=== PATIENT | female | born 1970 | race Caucasian/White ===

== ENCOUNTER 2021-08-22 10:09 | Outpatient (RCR) | payer OTHER, SELFPAY ==
--- OUTSIDE RECORDS SUMMARY | 2021-08-10 14:49 | XMS_ITS | Continuity of Care Document ---
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 Home Phone: Payer Policy Id Coverage Id Subscriber's Subscriber Effective Expi ration Name Id Date Date [place] [id number] [facility] Encounters Encounter Location(s) Arrival/Admit Date Discharge/Depart Date Provider(s) Registered [place] July 25, 2021 Ahmet Mcnally [facility] [id number] antonio Phan MD
[2021-08-22 10:28] VITALS: BP 134/75; PULSE 74; RESP 16; TEMP 36.4; O2SAT 98
[2021-08-22] MEDS: GOSERELIN ACETATE 3.6 MG IMPLANT SUBCUT (10:31)
== END 2021-08-24 23:59 | disposition home or self-care (01) ==
LOC: CCIC 10:09
PROVIDERS: Visit Provider Nurse Practitioner Family
DX: C78.00 Secondary malignant neoplasm of unspecified lung (principal)
CPT/HCPCS: 96401; J9202

== ENCOUNTER 2021-09-19 15:26 | Outpatient (RCR) | payer OTHER, SELFPAY ==
--- NOTE | 2021-09-15 16:23 | ONC.NURNOTE ---
Authorization from 05/26/2021 1200 per Amisha Morfin. Received request for prior auth for Gosrelin ([id number]). Per [facility] website and Khmer F at [facility], prior authorization is not required for this plan. Call ref#[id number].
[2021-09-19 15:40] VITALS: BP 126/72; PULSE 83; RESP 16; TEMP 36.7; O2SAT 98
[2021-09-19] MEDS: GOSERELIN ACETATE 3.6 MG IMPLANT SUBCUT (15:43)
== END 2021-09-24 23:59 | disposition home or self-care (01) ==
LOC: CCIC 15:26
PROVIDERS: Visit Provider Nurse Practitioner Family
DX: C55 Malignant neoplasm of uterus, part unspecified (principal)
CPT/HCPCS: 96372; 96401; J9202

== ENCOUNTER 2021-10-20 09:38 | Outpatient (RCR) | payer OTHER, SELFPAY ==
[2021-10-20 09:50] VITALS: BP 126/81; PULSE 78; RESP 16; TEMP 37.1; O2SAT 98
[2021-10-20] MEDS: GOSERELIN ACETATE 3.6 MG IMPLANT SUBCUT (10:21)
--- NOTE | 2021-10-20 10:53 | ONC.NURNOTE ---
Addendum entered by Cora Collins RN 11/15/21 15:05: Patient called and left message stating that she is enrolling in a study with [facility], so all further appointments here need to be cancelled. Original Note: Patient notes that she was told that she may need to start another chemotherapy. She is waiting to hear back from [place] to be enrolled into the clinical trial. At this time her primary medical oncologist, Dr. Almazan wants her to continue with injections. She will call when these are to be discontinued and she is being seen in [place].
== END 2022-04-18 23:59 | disposition home or self-care (01) ==
LOC: CCIC 09:38
PROVIDERS: Visit Provider Nurse Practitioner Family
DX: C55 Malignant neoplasm of uterus, part unspecified (principal); C78.00 Secondary malignant neoplasm of unspecified lung
CPT/HCPCS: 96401; J9202

== ENCOUNTER 2021-12-27 09:34 | Outpatient (CLI) | payer OTHER, SELFPAY ==
--- NOTE | 2021-12-27 10:00 | CRLHL7_ITS ---
For Patients: As a result of the 21st Century Cures Act, medical imaging exams and procedure reports are released immediately into your electronic medical record. You may view this report before your referring provider. If you have questions, please contact your health care provider. Indication: leiomyosarcoma- assess response to treatment Technique: Postcontrast CT chest, abdomen and pelvis. 95 cc Isovue 370 intravenous contrast. Please note that all CT scans at this facility use dose modulation, iterative reconstruction, and/or weight-based dosing when appropriate to reduce radiation dose to as low as reasonably achievable. Comparison: None Findings: In the chest, there are innumerable smoothly marginated oval/ovoid soft tissue nodules throughout the lungs bilaterally measuring up to 3 cm. Right-sided Port-A-Cath is present. Thyroid normal. Subcentimeter mediastinal and bilateral hilar lymph nodes are present. Normal axillary lymph nodes. Breast tissue unremarkable. Ill-defined density in the lingula adjacent to the hilum measuring 2.8 cm, series 4, image 40. The adjacent airways appear partially occluded. Dependent scarring within the right lower lobe. Postoperative changes to the right hemithorax/right ribcage. Sclerotic lesion within T7 measuring 1.4 cm. Smaller sclerotic focus within T5 and T11. Faint sclerotic density T12 with mild chronic appearing wedging of the superior endplate. Faint sclerotic focus within the right 5th rib. In the abdomen/pelvis, there is a benign intraosseous hemangioma within the L2 vertebral body. Proximal femurs are intact. Intact sacrum. Normal renal collecting systems and ureters. Normal renal parenchymal enhancement bilaterally. There is no retroperitoneal or mesenteric adenopathy. No intrahepatic mass. The gallbladder is normal. No calcified gallstones. No biliary obstruction. Normal pancreas. Normal spleen. The adrenal glands are normal. Mild vascular calcifications. No aneurysm. Normal bladder. Uterus appears absent. No adnexal mass. No bowel obstruction or free air. The appendix is normal. Right para midline supraumbilical hernia is present containing fat measuring 8.4 cm. A smaller right paramidline hernia is present measuring 1.5 cm, series 2, image 188, containing a small knuckle of non inflamed small bowel. Impression: Innumerable metastatic well-circumscribed masses throughout the lungs measuring up to 3 cm consistent with metastatic disease. Metastatic sclerotic foci within T7, T5, T11, T12 and the right 5th rib compatible with metastatic disease. Mild chronic wedging of the T12 superior endplate. Ill-defined 2.8 cm masslike density within the lingula adjacent to the hilum with associated obstruction of the airway, concerning for additional lesion which could be further evaluated with bronchoscopy as indicated. Right paramidline abdominal wall hernias. The smaller hernia measures 1.5 cm and contains a small knuckle of non inflamed small bowel. Please note that all CT scans at this facility use dose modulation, iterative reconstruction, and/or weight-based dosing when appropriate to reduce radiation dose to as low as reasonably achievable. Dictated by Margarito Ward MD @ 12/27/2021 12:16:43 PM (Electronically Signed)
== END 2021-12-27 09:35 | disposition home or self-care (01) ==
PROVIDERS: Visit Provider Internal Medicine
DX: C55 Malignant neoplasm of uterus, part unspecified (principal); C78.00 Secondary malignant neoplasm of unspecified lung; C79.51 Secondary malignant neoplasm of bone; K43.9 Ventral hernia without obstruction or gangrene
CPT/HCPCS: 71260; 74177; Q9967

== ENCOUNTER 2022-02-07 10:49 | Outpatient (CLI) | payer OTHER, SELFPAY ==
--- NOTE | 2022-02-07 11:00 | CRLHL7_ITS ---
For Patients: As a result of the Century Cures Act, medical imaging exams and procedure reports are released immediately into your electronic medical record. You may view this report before your referring provider. If you have questions, please contact your health care provider. Indication: LEIOMYOSARCOMA, METS TO LUNG Technique: Postcontrast CT chest, abdomen and pelvis. 95 cc Isovue 370 intravenous contrast. Please note that all CT scans at this facility use dose modulation, iterative reconstruction, and/or weight-based dosing when appropriate to reduce radiation dose to as low as reasonably achievable. Comparison: 12/27/2021 Findings: In the chest, similar size and number multiple circumscribed masses throughout the lungs measuring up to approximately 3 cm. No pneumothorax. No acute infiltrate. Chronic ill-defined densities adjacent to the lyla within the lingular region. Scarring at the right lower lobe. No pleural effusion. No fracture. Similar appearance of the osseous structures with prominent sclerotic focus within T7. Ribcage is similar. In the abdomen/pelvis, there is no suspicious intrahepatic mass. No calcified gallstones. No biliary obstruction. The pancreas is within normal limits. Normal spleen. Normal adrenal glands. Kidneys normal. Normal ureters. No retroperitoneal or mesenteric adenopathy. Upper abdominal wall hernia defect containing fat is similar. Smaller hernia just inferior is also similar with a small amount of bowel involvement. No bowel obstruction. No inflammatory changes. Stable appearance of the ovaries with hyperdense structures associated with the left ovary. Bladder normal. No pelvic or inguinal adenopathy. Stable lytic area involving the left medial pubic bone. Stable mild compression of T12. Stable sclerotic focus within T11. Impression : Overall stable appearance of the chest, abdomen and pelvis with innumerable metastatic masses throughout the lungs, unchanged in number and size. Similar appearance of the osseous metastatic disease without acute compression fracture. Stable appearance of the anterior abdominal wall. Please note that all CT scans at this facility use dose modulation, iterative reconstruction, and/or weight-based dosing when appropriate to reduce radiation dose to as low as reasonably achievable. Dictated by Margarito Ward MD @ 02/07/2022 1:53:49 PM (Electronically Signed)
== END 2022-02-07 10:50 | disposition home or self-care (01) ==
LOC: CT 10:50
PROVIDERS: Visit Provider Internal Medicine
DX: C49.9 Malignant neoplasm of connective and soft tissue, unspecified (principal); R91.8 Other nonspecific abnormal finding of lung field
CPT/HCPCS: 71260; 74177; Q9967

== ENCOUNTER 2022-02-19 09:50 | Outpatient (CLI) | payer OTHER, SELFPAY ==
[2022-02-19 10:41] LABS: Eosinophils Percent Auto 3.5 % (0.0-7.0); Hematocrit 40.2 % (33.0-51.0); Immature Granulocytes Pct Auto 0.3 %; Lymphocytes Percent Auto 31.7 % (20-44); Mean Corpuscular HGB Conc 35 gm/dL (32-36); Mean Corpuscular Hemoglobin 32 pg (26-34); Mean Corpuscular Volume 93 fL (80-100); Monocytes Percent Auto 15.3 % (0.0-11.0); Neutrophils Percent Auto 48.2 % (42.0-72.0); Platelet Count* 328 K/uL (140-440); RDW Coefficient of Variation % 12.3 % (11.5-15.5); Red Blood Count 4.34 m/uL (4.00-5.20); White Blood Count* 2.87 K/uL (4.50-11.00)
[2022-02-19 10:48] LABS: Slide Review Reflex No
[2022-02-19 10:59] LABS: Albumin* 4.5 g/dL (3.3-5.0); Chloride* 111 mmol/L (96-114)
[2022-02-19 11:00] LABS: Potassium* 4.2 mmol/L (3.6-5.1); Sodium* 141 mmol/L (135-149)
[2022-02-19 11:02] LABS: Alkaline Phosphatase* 85 U/L (40-150); Aspartate Amino Transferase* 35 U/L (12-35); Bilirubin Total* 0.7 mg/dL (0.1-1.5); Blood Urea Nitrogen* 16 mg/dL (7-30); Carbon Dioxide* 27 mmol/L (20-32); Creatine Kinase* 44 U/L (41-117); Creatinine* 0.5 mg/dL (0.5-1.5); Estimated Glomerular Filt Rate 113 ml/min; Total Protein* 7.4 g/dL (6.0-8.3)
[2022-02-19 11:03] LABS: Alanine Aminotransferase* 36 U/L (4-35); Calcium* 9.3 mg/dL (8.4-10.6); Glucose* 107 mg/dL (60-115); Phosphorus* 3.6 mg/dL (2.5-4.5)
== END 2022-02-19 09:51 | disposition home or self-care (01) ==
PROVIDERS: Visit Provider Internal Medicine
DX: C49.9 Malignant neoplasm of connective and soft tissue, unspecified (principal)
CPT/HCPCS: 36415; 80053; 82550; 84100; 85025

== ENCOUNTER 2022-03-28 07:54 | Outpatient (CLI) | payer OTHER, SELFPAY ==
--- NOTE | 2022-03-28 08:00 | CRLHL7_ITS ---
For Patients: As a result of the Century Cures Act, medical imaging exams and procedure reports are released immediately into your electronic medical record. You may view this report before your referring provider. If you have questions, please contact your health care provider. Indication: Leiomyosarcoma Technique: Postcontrast CT chest, abdomen and pelvis. 98 cc Isovue 370 intravenous contrast. Please note that all CT scans at this facility use dose modulation, iterative reconstruction, and/or weight-based dosing when appropriate to reduce radiation dose to as low as reasonably achievable. Comparison: 02/07/2022, 12/27/2021 Findings: In the chest, innumerable bilateral pulmonary nodules/masses are similar in size and number compared to the prior exam. The largest nodule measures approximately 3.3 cm. Mildly prominent upper mediastinal lymph nodes are similar. No pleural effusion. No infiltrate. No edema or pneumothorax. No change to the osseous structures unchanged sclerotic focus within T7 and T11 with chronic compression of T12. In the abdomen, there is no suspicious intrahepatic mass. The adrenal glands are normal. Normal kidneys. Spleen unremarkable. Normal pancreas. Atherosclerotic disease. Gallbladder normal. No retroperitoneal or mesenteric adenopathy. Stable supraumbilical midline abdominal wall hernia containing fat measuring up to 8 cm. In the pelvis, there is no pelvic or inguinal adenopathy. No bladder stone. A small amount of air is present within the bladder which is likely incidental. Mild sigmoid diverticulosis. No diverticulitis. No mechanical bowel obstruction. Appendix is normal. Stable soft tissue nodule within the right-sided subcutaneous fat measuring 1.7 cm at the level of the right acetabulum. Impression: No significant interval change in the innumerable bilateral pulmonary nodules/masses. Stable appearance of the osseous metastatic disease. Stable soft tissue nodule along the right lateral flank in the subcutaneous fat. Stable anterior abdominal wall hernia containing fat. No adenopathy in the abdomen or pelvis. No intrahepatic mass. Please note that all CT scans at this facility use dose modulation, iterative reconstruction, and/or weight-based dosing when appropriate to reduce radiation dose to as low as reasonably achievable. Dictated by Margarito Ward MD @ 03/29/2022 3:40:32 PM (Electronically Signed)
== END 2022-03-28 07:55 | disposition home or self-care (01) ==
PROVIDERS: Visit Provider Internal Medicine
DX: C49.9 Malignant neoplasm of connective and soft tissue, unspecified (principal); K43.9 Ventral hernia without obstruction or gangrene
CPT/HCPCS: 71260; 74177; Q9967

== ENCOUNTER 2022-04-14 20:55 | Emergency (ER) | payer OTHER, SELFPAY ==
[2022-04-14 21:06] VITALS: BP 138/84; PULSE 128; RESP 22; TEMP 38.3; O2SAT 97; BMI 33.2
--- NOTE | 2022-04-14 21:24 | ED_ITS ---
HPI - General Adult General Chief complaint: Fever Stated complaint: cancer pt - high fever Time Seen by Provider: 04/14/22 21:22 Source: patient and family Mode of arrival: ambulatory Limitations: no limitations History of Present Illness HPI narrative: 52-year-old female who comes in today with fever. 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 She has been taking ibuprofen fairly regularly but started feeling poorly today, did not take ibuprofen and developed fever. She noticed some nasal congestion a little bit of cough, daughter has COVID. She denies chest pain, shortness of breath, nausea, vomiting, diarrhea. Says she generally feels like she has a cold. Related Data Home Medications Medication Instructions Recorded Confirmed amlodipine 5 mg tablet mg 08/22/21 calcium carbonate 200 mg calcium 1 tab PO DAILY 08/22/21 04/14/22 (500 mg)-vitamin D3 400 unit tablet cinnamon bark 500 mg capsule 500 mg PO DAILY 08/22/21 04/14/22 (Cinnamon) fluoxetine 40 mg capsule mg 08/22/21 hydrochlorothiazide 25 mg tablet mg 08/22/21 losartan 100 mg tablet mg 08/22/21 aspirin 81 mg tablet,delayed 81 mg PO DAILY 04/14/22 04/14/22 release (Adult Aspirin Regimen) citalopram 20 mg tablet mg 04/14/22 gabapentin 300 mg capsule mg 04/14/22 Previous Rx's Medication Instructions Recorded cefdinir 300 mg capsule 300 mg PO BID 7 days #14 caps 04/14/22 Allergies Allergy/AdvReac Type Severity Reaction Status Date / Time fluconazole Allergy Mild nasuea Verified 04/14/22 21:18 Review of Systems Status of ROS: Reports: 10 or more systems reviewed and unremarkable except as noted in History and below [facility] Medical History (Updated 04/14/22 @ 23:30 by Robin Cintron MD) DVT (deep venous thrombosis) History of radiation therapy History of radiation therapy Leiomyosarcoma of uterus Malignant neoplasm metastatic to lung Surgical History (Updated 08/17/21 @ 17:15 by Leonela Zavala APRN) Status post cryoablation Exam Narrative: Exam Narrative: General: Well-developed and well-nourished, no acute distress Head: Atraumatic and normocephalic Eyes: Pupils are equal reactive, extraocular motions intact, conjunctiva clear ENT: External nose and ears are normal, posterior pharynx without erythema or exudate Neck: No midline cervical tenderness, full spontaneous range of motion the neck, trachea midline, no adenopathy Heart: Tachycardic but regular Lungs: Clear to auscultation bilaterally without wheezes or crackles Abdomen: Soft, nontender, nondistended with active bowel sounds Musculoskeletal: No tenderness, deformity, or edema Neurologic: Awake, alert, and oriented x3, no gross focal neurologic deficits, cranial nerves intact as tested Psych: Mood and affect are appropriate Skin: No rashes Const: Vital Signs, click to edit/add: Vital Signs - 24 hr 04/14/22 21:06 04/14/22 22:53 Temperature 101 F H 97.8 F Pulse Rate [Bilate ral] 128 H Respiratory Rate 22 Blood Pressure [Ri ght Upper Arm] 138/84 Pulse Oximetry 97 Oxygen Delivery Me thod Room Air Course Course Hospital Course: Patient seen examined, prior records reviewed. Patient presents today with fever, care affected by patient on chemotherapy with leiomyosarcoma metastatic to lung and pelvis with current pelvic insufficiency fracture. Differential diagnosis includes but not limited to neutropenic fever, medication reaction, pneumonia, urinary tract infection, intra-abdominal infection, COVID, influenza, sepsis. Labs ordered along with chest x-ray. IV fluids and ibuprofen ordered. Will draw blood cultures and perform urinalysis to evaluate for other source of infection but given history of COVID exposure, upper respiratory symptoms, and fever this most likely will represent COVID infection Reevaluation(s) Reevaluation #1: Labs independently interpreted by me demonstrate normal lactate, urinalysis with few bacteria, no squamous cells. COVID positive which likely is the source of symptoms. Chest x-ray independently interpreted by me does not demonstrate any acute infiltrates. Remaining labs are pending. Time: 23:08 Reevaluation #2: Patient updated, she is feeling better even the when she arrived and she was minimally symptomatic at that time. Discussed diagnosis and plan. Given mild concerning findings on urinalysis and patient moved compromise status, she will be started on antibiotics for possible acute cystitis but COVID is likely the major contributing to her symptoms today. Patient will be discharged on Omnicef , Rocephin in the emergency department, and follow-up with primary care and oncology. Time: 23:28 Vital Signs Vital signs: Initial Vital Signs Temperature 101 F H 04/14/22 21:06 Temperature Source Temporal Artery Scan 04/14/22 21:06 Pulse Rate 128 H 04/14/22 21:06 Pulse Rhythm 04/14/22 21:06 Pulse Strength 3+ Normal 04/14/22 21:06 Respiratory Rate 22 04/14/22 21:06 Blood Pressure 138/84 04/14/22 21:06 Blood Pressure Mean 102 04/14/22 21:06 Pulse Oximetry 97 04/14/22 21:06 Oxygen Delivery Method 04/14/22 21:06 Vital Signs Temperature 101 F H 04/14/22 21:06 Pulse Rate 128 H 04/14/22 21:06 Respiratory Rate 22 04/14/22 21:06 Blood Pressure 138/84 04/14/22 21:06 Pulse Oximetry 97 04/14/22 21:06 Oxygen Delivery Method 04/14/22 21:06 Temperature 97.8 F 04/14/22 22:53 Pulse Rate 128 H 04/14/22 21:06 Respiratory Rate 04/14/22 21:06 Blood Pressure 138/84 04/14/22 21:06 Pulse Oximetry 97 04/14/22 21:06 Oxygen Delivery Method 04/14/22 21:06 Medical Decision Making Medical Records Medical records reviewed: Yes I reviewed the patient's medical records Lab Data Lab results reviewed: Yes I reviewed the patient's lab results Labs: Lab Results 04/14/22 04/14/22 04/14/22 Range/Units 22:00 22:00 22:25 WBC 5.22 (4.50-11.00) K/uL RBC 4.31 (4.00-5.20) m/uL Hgb 13.9 (12.0-16.0) gm/dL Hct 39.5 (33.0-51.0) % MCV 92 (80-100) fL MCH 32 (26-34) pg MCHC 35 (32-36) gm/dL RDW Coeff of Mandy 12.4 (11.5-15.5) % Plt Count 184 (140-440) K/uL Neut % (Auto) 66.7 (42.0-72.0) % Lymph % (Auto) 15.1 L (20-44) % Sandoval % (Auto) 16.1 H (0.0-11.0) % Eos % (Auto) 0.4 (0.0-7.0) % Baso % (Auto) 0.4 (0.0-3.0) % Neut # (Auto) 3.48 (1.7-7.0) K/uL Lymph # (Auto) 0.80 L (0.90-2.90) K/uL [place]oval # (Auto) 0.80 (0.00-0.90) K/UL Eos # (Auto) 0.02 (0.00-0.50) K/uL Baso # (Auto) 0.02 (0.00-0.30) K/uL Sodium (135-149) mmol/L Potassium (3.6-5.1) mmol/L Chloride (96-114) mmol/L Carbon Dioxide (20-32) mmol/L BUN (7-30) mg/dL Creatinine (0.5-1.5) mg/dL Estimated Creat Clear Estimated GFR ml/min Glucose (60-115) mg/dL Lactate (0.5-1.9) mmol/L Calcium (8.4-10.6) mg/dL Total Bilirubin (0.1-1.5) mg/dL Direct Bilirubin (0.0-0.5) mg/dL AST (12-35) U/L ALT (4-35) U/L Alkaline Phosphatase (40-150) U/L Total Protein (6.0-8.3) g/dL Albumin (3.3-5.0) g/dL Urine Color Yellow (Yellow) Urine Appearance Clear (Clear) Urine pH 5.5 (5.0-8.5) Ur Specific [place] >= 1.030 (1.000-1.030) Urine Protein 1+ A (Negative) Urine Glucose (UA) Negative (Negative) Urine Ketones Trace A (Negative) Urine Blood 2+ A (Negative) Urine Nitrite Negative (Negative) Urine Bilirubin Negative (Negative) Urine Urobilinogen 0.2 (0.2-1.0) Ur Leukocyte Esterase Negative (Negative) Urine RBC 2-5 A (0-2) Urine WBC 2-5 (0-5) Ur Squamous Epith Cells None (None-Few) Amorphous Sediment Few A (None) Urine Bacteria Few A (None) SARS-CoV-2 (PCR) POSITIVE SARS-CoV-2 A (Negative) Influenza Type A (PCR) Negative PCR FLU A (Negative) Influenza Type B (PCR) Negative PCR FLU B (Negative) 04/14/22 04/14/22 04/14/22 Range/Units 22:25 22:25 22:25 WBC (4.50-11.00) K/uL RBC (4.00-5.20) m/uL Hgb (12.0-16.0) gm/dL Hct (33.0-51.0) % MCV (80-100) fL MCH (26-34) pg MCHC (32-36) gm/dL RDW Coeff of Mandy (11.5-15.5) % Plt Count (140-440) K/uL Neut % (Auto) (42.0-72.0) % Lymph % (Auto) (20-44) % Sandoval % (Auto) (0.0-11.0) % Eos % (Auto) (0.0-7.0) % Baso % (Auto) (0.0-3.0) % Neut # (Auto) (1.7-7.0) K/uL Lymph # (Auto) (0.90-2.90) K/uL [place] # (Auto) (0.00-0.90) K/UL Eos # (Auto) (0.00-0.50) K/uL Baso # (Auto) (0.00-0.30) K/uL Sodium 136 (135-149) mmol/L Potassium 3.5 L (3.6-5.1) mmol/L Chloride 107 (96-114) mmol/L Carbon Dioxide 22 (20-32) mmol/L BUN 13 (7-30) mg/dL Creatinine 0.5 (0.5-1.5) mg/dL Estimated Creat Clear 129.45 Estimated GFR 113 ml/min Glucose 136 H (60-115) mg/dL Lactate 1.7 (0.5-1.9) mmol/L Calcium 8.9 (8.4-10.6) mg/dL Total Bilirubin 0.5 (0.1-1.5) mg/dL Direct Bilirubin 0.2 (0.0-0.5) mg/dL AST 35 (12-35) U/L ALT 33 (4-35) U/L Alkaline Phosphatase 85 (40-150) U/L Total Protein 7.1 (6.0-8.3) g/dL Albumin 4.2 (3.3-5.0) g/dL Urine Color (Yellow) Urine Appearance (Clear) Urine pH (5.0-8.5) Ur Specific [place] (1.000-1.030) Urine Protein (Negative) Urine Glucose (UA) (Negative) Urine Ketones (Negative) Urine Blood (Negative) Urine Nitrite (Negative) Urine Bilirubin (Negative) Urine Urobilinogen (0.2-1.0) Ur Leukocyte Esterase (Negative) Urine RBC (0-2) Urine WBC (0-5) Ur Squamous Epith Cells (None-Few) Amorphous Sediment (None) Urine Bacteria (None) SARS-CoV-2 (PCR) (Negative) Influenza Type A (PCR) (Negative) Influenza Type B (PCR) (Negative) Discharge Plan Discharge Clinical Impression: Acute cystitis, COVID-19 virus infection, Malignant neoplasm metastatic to lung Patient Disposition: Home, Self-Care Condition: Stable Instructions: Urinary Tract Infection in Women (DC), COVID-19 (Coronavirus Disease 2019) (ED) Activity Level: No Restrictions Discharge Diet: Regular Prescriptions: New cefdinir 300 mg capsule 300 mg PO BID 7 Days Qty: 14 0RF No Action fluoxetine 40 mg capsule Label Comments: TAKE 1 CAPSULE BY MOUTH ONCE DAILY amlodipine 5 mg tablet Label Comments: TAKE 1 TABLET BY MOUTH EVERY DAY hydrochlorothiazide 25 mg tablet Label Comments: TAKE 1 TABLET BY MOUTH EVERY DAY losartan 100 mg tablet Label Comments: TAKE 1 TABLET BY MOUTH EVERY DAY calcium carbonate-vitamin D3 200 mg (500 mg) -400 unit tablet 1 tab PO DAILY cinnamon bark [Cinnamon] 500 mg capsule 500 mg PO DAILY citalopram 20 mg tablet Label Comments: TAKE 1 TABLET BY MOUTH EVERY DAY gabapentin 300 mg capsule Label Comments: PLEASE SEE ATTACHED FOR DETAILED DIRECTIONS aspirin [Adult Aspirin Regimen] 81 mg tablet,delayed release (DR/EC) 81 mg PO DAILY Follow Up/Referrals: Provider,Not a Local [Primary Care Provider] - Stand Alone Forms: [employer] Info Instructions
--- NOTE | 2022-04-14 21:34 | CRLHL7_ITS ---
For Patients: As a result of the Century Cures Act, medical imaging exams and procedure reports are released immediately into your electronic medical record. You may view this report before your referring provider. If you have questions, please contact your health care provider. INDICATION: Fever, lung cancer.. TECHNIQUE: Chest 1 views. COMPARISON: CT of the chest from March 28, 2022.. FINDINGS: Cardiovascular and mediastinum: Cardiomediastinal silhouette is within normal limits. Right chest wall Port-A-Cath with distal tip at the radiate trim. Lungs and pleural spaces: Multiple rounded nodular opacities identified in the bilateral lungs., Largest in the mid right lung near the hilum measuring 3.8 centimeters in diameter, stable from prior examination dated March 28, 2022. no sign of pleural effusion. No pneumothorax. Bones and soft tissues: No significant findings. IMPRESSION: Stable bilateral nodular opacities. No dense consolidations. Dictated by Albina Miramontes MD @ 04/14/2022 10:54:06 PM (Electronically Signed)
[2022-04-14] MEDS: IBUPROFEN 600 MG TABLET PO (21:41)
[2022-04-14 22:27] LABS: Appearance Urine Clear (Clear); Bilirubin Urine Negative (Negative); Blood Urine 2+ (Negative); Color Urine Yellow (Yellow); Glucose Urine Negative (Negative); Ketones Urine Trace (Negative); Leukocyte Esterase Urine Negative (Negative); Nitrite Urine Negative (Negative); Protein Urine 1+ (Negative); Specific Gravity Urine >= 1.030 (1.000-1.030); Urobilinogen Urine 0.2 (0.2-1.0); pH Urine 5.5 (5.0-8.5)
[2022-04-14 22:41] LABS: Amorphous Sediment Urine Few; Bacteria Urine Few
[2022-04-14 22:44] LABS: Lactate* 1.7 mmol/L (0.5-1.9)
[2022-04-14 22:53] VITALS: TEMP 36.6
--- NOTE | 2022-04-14 22:55 | ED.NURSE ---
ER MD sullivan to access port
[2022-04-14 22:59] LABS: PCR FLU A Negative PCR FLU A (Negative); PCR FLU B Negative PCR FLU B (Negative)
[2022-04-14 23:03] LABS: SARS PCR* POSITIVE SARS-CoV-2 (Negative)
[2022-04-14 23:05] LABS: Albumin* 4.2 g/dL (3.3-5.0)
[2022-04-14 23:08] LABS: Alanine Aminotransferase* 33 U/L (4-35); Alkaline Phosphatase* 85 U/L (40-150); Aspartate Amino Transferase* 35 U/L (12-35); Bilirubin Direct* 0.2 mg/dL (0.0-0.5); Bilirubin Total* 0.5 mg/dL (0.1-1.5); Total Protein* 7.1 g/dL (6.0-8.3)
[2022-04-14 23:11] LABS: Chloride* 107 mmol/L (96-114); Potassium* 3.5 mmol/L (3.6-5.1); Sodium* 136 mmol/L (135-149)
[2022-04-14 23:14] LABS: Basophils Absolute Auto 0.02 K/uL (0.00-0.30); Basophils Percent Auto 0.4 % (0.0-3.0); Blood Urea Nitrogen* 13 mg/dL (7-30); Carbon Dioxide* 22 mmol/L (20-32); Creatinine* 0.5 mg/dL (0.5-1.5); Eosinophils Absolute Auto 0.02 K/uL (0.00-0.50); Eosinophils Percent Auto 0.4 % (0.0-7.0); Est. Creatinine Clearance* 129.45; Estimated Glomerular Filt Rate 113 ml/min; Glucose* 136 mg/dL (60-115); Hematocrit 39.5 % (33.0-51.0); Hemoglobin* 13.9 gm/dL (12.0-16.0); Immature Granulocytes Abs Auto 0.07 K/uL (0.00-0.30); Immature Granulocytes Pct Auto 1.3 %; Lymphocytes Percent Auto 15.1 % (20-44); Mean Corpuscular HGB Conc 35 gm/dL (32-36); Mean Corpuscular Hemoglobin 32 pg (26-34); Mean Corpuscular Volume 92 fL (80-100); Monocytes Percent Auto 16.1 % (0.0-11.0); Neutrophils Absolute Auto 3.48 K/uL (1.7-7.0); Neutrophils Percent Auto 66.7 % (42.0-72.0); Platelet Count* 184 K/uL (140-440); RDW Coefficient of Variation % 12.4 % (11.5-15.5); Red Blood Count 4.31 m/uL (4.00-5.20); Slide Review Reflex No; White Blood Count* 5.22 K/uL (4.50-11.00)
[2022-04-14 23:15] LABS: Calcium* 8.9 mg/dL (8.4-10.6)
[2022-04-14 23:32] VITALS: BP 125/57; PULSE 109; RESP 20; O2SAT 97
[2022-04-14] MEDS: 0.9 % SODIUM CHLORIDE 1000 ml 1,000 ML IV (23:44)
[2022-04-14] MEDS: cefTRIAXone 1 GM in 0.9 % SODIUM CHLORIDE Mini-bag 100 ML IVPB (23:44)
[2022-04-15 00:30] VITALS: BP 112/70; PULSE 95; RESP 20; O2SAT 96
== END 2022-04-15 00:25 | disposition home or self-care (01) ==
PROVIDERS: Emergency Provider Family Medicine
DX: N30.00 Acute cystitis without hematuria (principal); U07.1 COVID-19; C34.90 Malignant neoplasm of unspecified part of unspecified bronchus or lung
CPT/HCPCS: 36415; 71045; 80048; 80076; 81001; 83605; 85025; 87040; 87086; 87631; 96365; 99284; 99285; A9270; J0696; J7030

== ENCOUNTER 2022-05-23 07:39 | Outpatient (CLI) | payer OTHER, SELFPAY ==
--- NOTE | 2022-05-23 08:00 | CRLHL7_ITS ---
For Patients: As a result of the Century Cures Act, medical imaging exams and procedure reports are released immediately into your electronic medical record. You may view this report before your referring provider. If you have questions, please contact your health care provider. Indication: Leiomyosarcoma Technique: Contrast CT chest abdomen and pelvis Comparison: CT 03/28/2022, 12/27/2021 Findings: Heart size normal. Normal caliber thoracic aorta no pericardial effusion. Multiple masses and nodules throughout the lungs overall not significantly changed largest mass is located in the medial right upper lobe measuring 4.2 centimeters. No effusion. No liver lesions are seen. Gallbladder pancreas adrenal glands spleen are unremarkable. Normal caliber abdominal aorta and kidneys are unremarkable. Urinary bladder unremarkable. Abundant stool in the colon. No obstruction is seen. Diverticulosis. Fat containing ventral hernia Pathologic fracture again seen of the left superior pubic ramus extending into the pubis. Sclerotic lesions involving the T7 T12 vertebral bodies and T11 vertebral bodies without significant change. Enlarging 1.9 centimeter dense nodule in the left pelvis superior aspect the vaginal cuff when compared to 2021 may represent metastatic disease. Impression: 1. Stable pulmonary metastatic disease. 2. Mild interval enlargement of 1.9 centimeter dense nodule in the left pelvis along the superior aspect of the vaginal cuff may represent metastatic disease. 3. Stable bony metastatic disease with pathologic left superior pubic ramus fractures extending to pubis. Please note that all CT scans at this facility use dose modulation, iterative reconstruction, and/or weight-based dosing when appropriate to reduce radiation dose to as low as reasonably achievable. Dictated by Liseth Lopes MD @ 05/23/2022 10:07:04 AM (Electronically Signed)
== END 2022-05-23 07:40 | disposition home or self-care (01) ==
PROVIDERS: Visit Provider Internal Medicine
DX: C49.9 Malignant neoplasm of connective and soft tissue, unspecified (principal); C78.00 Secondary malignant neoplasm of unspecified lung; R59.9 Enlarged lymph nodes, unspecified; C79.51 Secondary malignant neoplasm of bone
CPT/HCPCS: 71260; 74177; Q9967

== ENCOUNTER 2022-08-06 14:46 | Outpatient (CLI) | payer OTHER, SELFPAY | END 2022-08-06 14:47 | disposition home or self-care (01) | LOC: RAD 14:47 | PROVIDERS: PCP Family Medicine; Visit Provider Internal Medicine | DX: Z51.11 Encounter for antineoplastic chemotherapy (principal) | CPT/HCPCS: 93306 ==

== ENCOUNTER 2022-08-17 01:48 | Observation (INO) | payer OTHER, SELFPAY ==
[2022-08-17] VITALS (9 sets, daily range): BP systolic 103–129; BP diastolic 67–89; PULSE 85–109; RESP 16–18; TEMP 36.1–37.1; O2SAT 94–99; BMI 32.3; BMI 34.2
[2022-08-17] MEDS: 0.9 % SODIUM CHLORIDE 1000 ml 1,000 ML IV (02:30)
[2022-08-17] MEDS: ONDANSETRON 2 MG/ML inj 4 MG IVP ×4 (02:30→23:00)
[2022-08-17] MEDS: HYDROmorphone 0.5 mg/0.5 ml inj 1 MG IVP (02:31)
--- NOTE | 2022-08-17 02:33 | ED.GENADULT ---
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 She has been dealing with some low back pain which has been present she says for several weeks. She did have a CT scan at the end of June which showed a pathologic fracture in her pelvis. She, reviewing her records, has known lesions in her spine at T7. She has an old compression fracture T12. She has been scheduled to have an MRI next week on Saturday to further evaluate her symptoms. She has developed some numbness of the left foot upper leg in the thigh. No other radiating pain and no weakness. She denies any systemic symptoms at all. She was given oxycodone to take. She initially was taking ibuprofen but stopped that a couple of days ago. Today she has taken 2 doses of oxycodone, initially she was taking 5 mg but they advised that she increase to 10 mg per dose. She has taken 2 doses of oxycodone today, 1 this morning and 1 tonight. She reports tonight she did not have any relief of pain. Pain is now severe and unrelenting. Related Data Home Medications Medication Instructions Recorded Confirmed amlodipine 5 mg tablet 5 mg 08/22/21 calcium carbonate 200 mg calcium 1 tab PO DAILY 08/22/21 04/14/22 (500 mg)-vitamin D3 400 unit tablet cinnamon bark 500 mg capsule 500 mg PO DAILY 08/22/21 04/14/22 (Cinnamon) fluoxetine 40 mg capsule mg 08/22/21 hydrochlorothiazide 25 mg tablet mg 08/22/21 losartan 100 mg tablet mg 08/22/21 aspirin 81 mg tablet,delayed 81 mg PO DAILY 04/14/22 04/14/22 release (Adult Aspirin Regimen) citalopram 20 mg tablet mg 04/14/22 gabapentin 300 mg capsule mg 04/14/22 apixaban 5 mg tablet (Eliquis) mg PO 08/17/22 citalopram 40 mg tablet 40 mg PO DAILY 08/17/22 08/17/22 cyclobenzaprine 5 mg tablet 5 - 10 mg PO 3XD PRN 08/17/22 08/17/22 ondansetron HCl 8 mg tablet 8 mg PO Q8H PRN nausea 08/17/22 08/17/22 oxycodone 5 mg tablet mg PO 08/17/22 Previous Rx's Medication Instructions Recorded cefdinir 300 mg capsule 300 mg PO BID 7 days #14 caps 04/14/22 Allergies Allergy/AdvReac Type Severity Reaction Status Date / Time fluconazole Allergy Mild nasuea Verified 07/25/22 08:20 Review of Systems Status of ROS: Reports: 10 or more systems reviewed and unremarkable except as noted in History and below [facility] Medical History Malignant neoplasm metastatic to lung ?C78.00 - Secondary malignant neoplasm of unspecified lung (ICD-10) 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 - Malignant neoplasm of uterus, part unspecified (ICD-10) History of radiation therapy ?Z92.3 - Personal history of irradiation (ICD-10) History of radiation therapy ?Z92.3 - Personal history of irradiation (ICD-10) DVT (deep venous thrombosis) ?I82.409 - Acute embolism and thrombosis of unspecified deep veins of unspecified lower extremity (ICD-10) Surgical History Status post cryoablation ?Z98.890 - Other specified postprocedural states (ICD-10) Social History What is your current living situation: I presently have a place to live Problems where you live: no known problems Problems where you live details: N/A In the past 12 months, utilities in danger of being shut off: no In the past 12 mos, have been you worried that your food would run out before you had money to buy more?: never true In the past 12 mos, the food you bought just didn't last and you didn't have money to buy more?: never true Highest level of school completed/degree received: Associate degree: academic program Smoking Status: Former smoker Do you use any of these nicotine containing products: None How often do you have a drink containing alcohol: never How often do you have six or more drinks on one occasion: Never AUDIT-C Alcohol total score: 0 Non-prescribed substance use: marijuana (any form) Caffeine: Yes (30 FL OZ ICE COFFEE DAILY) How often does anyone, including family, friends and others, physically hurt you: How often does anyone, including family, friends and others, insult or talk down to you: How often does anyone, including family, friends and others, threaten you with harm: How often does anyone, including family, friends and others, scream or curse at you: Exam Narrative: Exam Narrative: Vital signs as noted above. In general, an alert, well-appearing patient. She looks uncomfortable. Head: Normocephalic, atraumatic. Eyes: Pupils are equal reactive. Extraocular movements are full. Conjunctivae are normal. ENT: Mucous membranes are moist. Throat is normal. Neck: Supple without lymphadenopathy. Heart: Regular rate and rhythm. No murmur or rub. Lungs: Clear bilaterally. No increased work of breathing, crackles or wheezes. Abdomen: Soft and nontender. No organomegaly. Extremities: Well perfused. No edema. No calf tenderness. Pulses intact. Neurologic: Patient is alert and oriented to person and place. Speech is fluent. Face is symmetric. Moves all extremities equally. Strength is 5/5 in bilateral lower extremities. Sensations intact to light touch. Affect: Normal. Skin: Warm and dry. Well perfused. Const: Vital Signs, click to edit/add: Vital Signs - 24 hr 08/17/22 02:06 08/17/22 03:18 08/17/22 04:20 Temperature 97.0 F L Pulse Rate [Pulse Oximeter] 101 H 104 H 101 H Respiratory Rate 18 18 18 Blood Pressure [Le ft Upper Arm] 127/79 129/81 Pulse Oximetry 97 99 Oxygen Delivery Me thod Room Air Room Air Documenting provider has reviewed patient's vital signs: yes Course Course Hospital Course: We accessed her port here and gave Dilaudid as well as Zofran. She is feeling significantly better. I have reviewed her records including a CT of the chest abdomen pelvis from the end of June. I did do some basic labs, CBC is unremarkable, CRP minimally elevated at 1.2 and lactate is normal. I do not think this represents an infectious process. Other considerations include hemorrhage although again given duration of symptoms I think this is less likely. Fractures possible as well as since the early denture cancer such as a disc herniation. Given that she has been having progressively worsening pain for the past several weeks, not controlled by fairly large doses of narcotics at home, I suggested that we have her stand hospital overnight tonight contaminant need to work on pain control and can expedite her imaging tomorrow she is comfortable with that plan. Vital Signs Vital signs: Initial Vital Signs Temperature 97.0 F L 08/17/22 02:06 Temperature Source Temporal Artery Scan 08/17/22 02:06 Pulse Rate 101 H 08/17/22 02:06 Respiratory Rate 18 08/17/22 02:06 Blood Pressure 127/79 08/17/22 02:06 Blood Pressure Mean 95 08/17/22 02:06 Pulse Oximetry 97 08/17/22 02:06 Oxygen Delivery Method Room Air 08/17/22 02:06 Vital Signs Temperature 97.0 F L 08/17/22 02:06 Pulse Rate 101 H 08/17/22 02:06 Respiratory Rate 18 08/17/22 02:06 Blood Pressure 127/79 08/17/22 02:06 Pulse Oximetry 97 08/17/22 02:06 Oxygen Delivery Method Room Air 08/17/22 02:06 Temperature 97.6 F 08/17/22 05:04 Pulse Rate 109 H 08/17/22 05:04 Respiratory Rate 16 08/17/22 05:04 Blood Pressure 128/79 08/17/22 05:04 Pulse Oximetry 96 08/17/22 05:04 Oxygen Delivery Method Room Air 08/17/22 05:04 Medical Decision Making Lab Data Labs: Lab Results 08/17/22 Range/Units 02:30 WBC 8.41 (4.50-11.00) K/uL RBC 3.84 L (4.00-5.20) m/uL Hgb 12.2 (12.0-16.0) gm/dL Hct 35.5 (33.0-51.0) % MCV 92 (80-100) fL MCH 32 (26-34) pg MCHC 34 (32-36) gm/dL RDW Coeff of Mandy 12.4 (11.5-15.5) % Plt Count 286 (140-440) K/uL Neut % (Auto) 81.8 H (42.0-72.0) % Lymph % (Auto) 10.3 L (20-44) % [place] % (Auto) 6.4 (0.0-11.0) % Eos % (Auto) 1.0 (0.0-7.0) % Baso % (Auto) 0.1 (0.0-3.0) % Neut # (Auto) 6.90 (1.7-7.0) K/uL Lymph # (Auto) 0.90 (0.90-2.90) K/uL [place] # (Auto) 0.50 (0.00-0.90) K/UL Eos # (Auto) 0.08 (0.00-0.50) K/uL Baso # (Auto) 0.01 (0.00-0.30) K/uL Sodium 138 (135-149) mmol/L Potassium 3.7 (3.6-5.1) mmol/L Chloride 104 (96-114) mmol/L Carbon Dioxide 26 (20-32) mmol/L BUN 16 (7-30) mg/dL Creatinine 0.5 (0.5-1.5) mg/dL Estimated Creat Clear 124.61 Estimated GFR 113 ml/min Glucose 163 H (60-115) mg/dL Lactate 1.0 (0.5-1.9) mmol/L Calcium 9.6 (8.4-10.6) mg/dL C-Reactive Protein 1.7 H (0.5-1.0) mg/dL Discharge Plan Discharge Clinical Impression: Back pain, Metastatic cancer Patient Disposition: Admitted As Observation
[2022-08-17 02:37] LABS: Basophils Absolute Auto 0.01 K/uL (0.00-0.30); Basophils Percent Auto 0.1 % (0.0-3.0); Eosinophils Absolute Auto 0.08 K/uL (0.00-0.50); Hematocrit 35.5 % (33.0-51.0); Hemoglobin* 12.2 gm/dL (12.0-16.0); Immature Granulocytes Abs Auto 0.03 K/uL (0.00-0.30); Immature Granulocytes Pct Auto 0.4 %; Lymphocytes Percent Auto 10.3 % (20-44); Mean Corpuscular HGB Conc 34 gm/dL (32-36); Mean Corpuscular Hemoglobin 32 pg (26-34); Mean Corpuscular Volume 92 fL (80-100); Monocytes Percent Auto 6.4 % (0.0-11.0); Neutrophils Percent Auto 81.8 % (42.0-72.0); Platelet Count* 286 K/uL (140-440); RDW Coefficient of Variation % 12.4 % (11.5-15.5); Red Blood Count 3.84 m/uL (4.00-5.20); White Blood Count* 8.41 K/uL (4.50-11.00)
[2022-08-17 02:38] LABS: Slide Review Reflex No
[2022-08-17 02:51] LABS: Chloride* 104 mmol/L (96-114); Potassium* 3.7 mmol/L (3.6-5.1); Sodium* 138 mmol/L (135-149)
[2022-08-17 02:54] LABS: Blood Urea Nitrogen* 16 mg/dL (7-30); Calcium* 9.6 mg/dL (8.4-10.6); Carbon Dioxide* 26 mmol/L (20-32); Creatinine* 0.5 mg/dL (0.5-1.5); Est. Creatinine Clearance* 124.61; Estimated Glomerular Filt Rate 113 ml/min; Glucose* 163 mg/dL (60-115)
[2022-08-17 02:58] LABS: C Reactive Protein* 1.7 mg/dL (0.5-1.0)
--- NOTE | 2022-08-17 04:21 | ED.NURSE ---
Report to [facility] RN. Patient admitted to room 262. Transported to [place] via stretcher. Mother with patient at time of transport.
--- NOTE | 2022-08-17 04:58 | PM.IMCN1 ---
Date of Consult Consult date: 08/17/22 Primary Care Provider: Epi Stinson MD Consult Narrative Narrative: [facility] Hospitalist ADMISSION SUPPORT NOTE eHospitalist was contacted by Dr. Hall with request of admission support. Chief complaint: Worsening back pain HPI: The patient reports that for several weeks she has had increasing back pain however more recently her pain is worsened and has become unbearable. She has a pelvic fracture related to metastatic disease and then started developing back pain after that and thought it may have been related to the crutches she was using however the pain worsened and then she started developing numbness from mid left side to the area of her hips on the left. She denies any weakness. Despite oxycodone 10 every 4 hours her pain was uncontrolled. She is scheduled MRI for Saturday and is being admitted for pain control and expediting her imaging. 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, varicose vein surgery Pertinent Social History: No history of drugs or alcohol or smoking [facility] Medical History Malignant neoplasm metastatic to lung ?C78.00 - Secondary malignant neoplasm of unspecified lung (ICD-10) 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 - Malignant neoplasm of uterus, part unspecified (ICD-10) History of radiation therapy ?Z92.3 - Personal history of irradiation (ICD-10) History of radiation therapy ?Z92.3 - Personal history of irradiation (ICD-10) DVT (deep venous thrombosis) ?I82.409 - Acute embolism and thrombosis of unspecified deep veins of unspecified lower extremity (ICD-10) Surgical History Status post cryoablation ?Z98.890 - Other specified postprocedural states (ICD-10) Social History Smoking Status: Never smoker How often do you have a drink containing alcohol: never How often do you have six or more drinks on one occasion: Never AUDIT-C Alcohol total score: 0 Non-prescribed substance use: marijuana (any form) Meds Home Medications and Allergies Home Medications Medication Instructions Recorded Confirmed Type amlodipine 5 mg tablet 5 mg 08/22/21 History calcium carbonate 200 mg calcium 1 tab PO DAILY 08/22/21 04/14/22 History (500 mg)-vitamin D3 400 unit tablet cinnamon bark 500 mg capsule 500 mg PO DAILY 08/22/21 04/14/22 History (Cinnamon) fluoxetine 40 mg capsule mg 08/22/21 History hydrochlorothiazide 25 mg tablet mg 08/22/21 History losartan 100 mg tablet mg 08/22/21 History aspirin 81 mg tablet,delayed 81 mg PO DAILY 04/14/22 04/14/22 History release (Adult Aspirin Regimen) citalopram 20 mg tablet mg 04/14/22 History gabapentin 300 mg capsule mg 04/14/22 History apixaban 5 mg tablet (Eliquis) mg PO 08/17/22 History citalopram 40 mg tablet 40 mg PO DAILY 08/17/22 08/17/22 History cyclobenzaprine 5 mg tablet 5 - 10 mg PO 3XD PRN 08/17/22 08/17/22 History ondansetron HCl 8 mg tablet 8 mg PO Q8H PRN nausea 08/17/22 08/17/22 History oxycodone 5 mg tablet mg PO 08/17/22 History Allergies Allergy/AdvReac Type Severity Reaction Status Date / Time fluconazole Allergy Mild nasuea Verified 07/25/22 08:20 Exam Narrative: Exam Narrative: Exam (performed via interactive video with assistance of bedside nurse): Multiple family members present at bedside General: Alert, cooperative, no acute distress HEENT: Oral mucosa pink and moist without erythema Lungs: Clear to auscultation bilaterally without crackle or wheeze CV: Regular rate and rhythm without loud murmur rub or gallop Ext: No pitting edema noted Skin: No rashes, bruises or lesions appreciated on gross visualization of exposed skin Neuro: Alert, oriented x 3. CN III -VII, XI, XII grossly intact, moves all extremities without any significant focal deficit appreciated by nurse Const: Vital Signs, click to edit/add: Vital Signs - 24 hr 08/17/22 02:06 08/17/22 03:18 08/17/22 04:20 Temperature 97.0 F L Pulse Rate [Pulse Oximeter] 101 H 104 H 101 H Respiratory Rate 18 18 18 Blood Pressure [Le ft Upper Arm] 127/79 129/81 Pulse Oximetry 97 99 Oxygen Delivery Me thod Room Air Room Air Labs Labs: Short CBC 08/17/22 Range/Units 02:30 WBC 8.41 (4.50-11.00) K/uL Hgb 12.2 (12.0-16.0) gm/dL Hct 35.5 (33.0-51.0) % Plt Count 286 (140-440) K/uL BMP 08/17/22 02:30 Sodium 138 Potassium 3.7 Chloride 104 Carbon Dioxide 26 BUN 16 Creatinine 0.5 Glucose 163 H Calcium 9.6 Assessment and Plan Assessment and plan (1) Back pain: Status: Acute Plan Recent lab: Reviewed see EMR for details Assessment and Plan: 1. Back pain-pain control with oxycodone higher dosing 10 to 15 mg every 3 hours as well as Dilaudid. MRI of thoracolumbar spine as well as pelvis ordered. Patient states that this is what was scheduled for Saturday. 2. Recent DVT-resume apixaban once reconciled 3. Hypertension-continue amlodipine, HCTZ and losartan once dosing reconciled 4. Depression-continue citalopram 5. Uterine cancer-scheduled to begin new treatment at [facility] 6. DVT prophylaxis-anticoagulated on apixaban 7. CODE STATUS full code discussed with patient Chart review was performed as well as evaluation of the patient via video. Thank you for involving ehospitalist. Please contact [phone] if further assistance is needed.
--- NOTE | 2022-08-17 05:31 | CRLHL7_ITS ---
For Patients: As a result of the Century Cures Act, medical imaging exams and procedure reports are released immediately into your electronic medical record. You may view this report before your referring provider. If you have questions, please contact your health care provider. INDICATION: Sarcoma with metastatic disease; back pain; evaluate metastatic disease. COMPARISON: CT chest, abdomen and pelvis with intravenous contrast July 25, 2022. TECHNIQUE: MR of the pelvis without and with intravenous contrast; 15 cc of Dotarem contrast was injected. FINDINGS: A 2.3 cm soft tissue nodule identified in the left pelvis indicating metastatic deposit. Status post hysterectomy. Metastatic disease identified involving the left pubic bone, superior and inferior pubic rami on the left with pathological fracture. Infiltrating metastatic deposits identified within the left iliac bone. Status post hysterectomy. Impression : 1. Metastatic disease involving the left pubic bone and superior and inferior pubic rami with pathological fracture. 2. Infiltrating metastatic disease involving the left iliac bone. 3. Soft tissue nodule identified in the left pelvis measuring 2.3 cm indicating metastatic deposit. Dictated by Tim Taylor MD @ 08/17/2022 2:00:45 PM (Electronically Signed)
--- NOTE | 2022-08-17 05:31 | CRLHL7_ITS ---
For Patients: As a result of the 21st Century Cures Act, medical imaging exams and procedure reports are released immediately into your electronic medical record. You may view this report before your referring provider. If you have questions, please contact your health care provider. Indication: Back pain, metastatic disease Technique: Multiplanar, multisequence, MRI of the lumbar spine, obtained without and with contrast. A total of 15 mL of Dotarem IV contrast was administered. Comparison: Same-day MRI thoracic spine, CT chest abdomen pelvis 07/25/2022 Findings: Slight thoracolumbar levocurvature. Preserved lumbar lordosis. Partially visualized sclerotic, enhancing, T11 anterior vertebral body lesion. Re-demonstration of the infiltrative, sclerotic T12 vertebral body lesion. Better visualized on these images are cortical defects at the superior endplate and posterior wall, with focal bony edema at the right greater than left pedicles. Again seen is ill-defined ventral epidural fullness concerning for extra osseous neoplasm, with craniocaudal spread encroaching upon the bilateral T11-T12 and T12-L1 neural foramina. Bony expansion/cortical retropulsion dorsally displaces the conus,, with partial thecal sac effacement and moderate spinal canal stenosis. No convincing cord signal abnormality identified. T1 hyperintense lesions at L2 and L3 are most compatible with intraosseous hemangiomas. The conus medullaris terminates at approximately L1. No suspicious findings identified within the lumbar prevertebral or paraspinal soft tissues. The included SI joints are unremarkable. T12-L1, L1-L2, L2-L3, L3-L4: No significant neural foraminal or spinal canal stenosis. L4-L5: Mild diffuse disc bulge, moderate facet arthropathy. Moderate left neuroforaminal stenosis. No significant right neural foramina or spinal canal stenosis. L5-S1: Moderate facet arthropathy. Moderate left neural foraminal stenosis. No significant right neural foraminal or spinal canal stenosis. Impression: 1. The infiltrative, enhancing T12 vertebral body lesion is better visualized on this exam, demonstrating cortical defects at the superior endplate and posterior wall, with patchy bony edema extending to the right greater than left pedicles, compatible with pathologic fracture. 2. Posterior bony expansion and suspected ventral epidural extraosseous component contribute to moderate spinal canal stenosis, as well as encroachment upon the bilateral T11-T12 and T12-L1 neural foramina. 3. T1 hyperintense vertebral body lesions at L2 and L3 are most compatible with intraosseous hemangiomas. 4. Lumbar spondylosis contributes to moderate left-sided neural foraminal stenosis at L4-5 and L5-S1. Dictated by Glenna Balderas MD @ 08/17/2022 1:34:58 PM (Electronically Signed)
--- NOTE | 2022-08-17 05:31 | CRLHL7_ITS ---
For Patients: As a result of the Century Cures Act, medical imaging exams and procedure reports are released immediately into your electronic medical record. You may view this report before your referring provider. If you have questions, please contact your health care provider. Indication: Back pain, metastatic disease Technique: Multiplanar, multisequence, MRI of the thoracic spine, obtained without and with contrast. A total of 15 mL of Dotarem IV contrast was administered. Comparison: Same-day MRI lumbar spine, CT chest abdomen pelvis 07/25/2022 Findings: Normal static alignment of the thoracic spine. No significant spondylolisthesis. Localizing images demonstrate sclerotic lesion at the C4 vertebral body, indeterminate, although suspicious for metastatic disease given patient history. Sclerotic, enhancing lesion involving most of the T7 vertebral body, compatible with metastatic disease. Sclerotic, enhancing lesion involving the anterior T11 vertebral body, compatible with metastatic disease. Sclerotic, enhancing lesion infiltrating the T12 vertebral body, with superior endplate compression deformity, posterior bony expansion, and suspected extraosseous ventral epidural component demonstrating craniocaudal spread, encroaching upon the bilateral T11-12 and T12-L1 neural foramina. Additional smaller sclerotic foci are noted at the T5 and T9 vertebral bodies, not well characterized. The T12 expansile vertebral body lesion contributes to moderate spinal canal stenosis, with dorsal displacement of the conus and partial effacement of the thecal sac. No convincing cord signal abnormality identified. Incidental partially visualized lipoma in the upper back at the level of the cervicothoracic junction, measuring greater than 6 cm. IMPRESSION: 1. Sclerotic enhancing vertebral body lesions at T7, T11, and T12, compatible with metastatic disease. 2. Small sclerotic foci at the T5 and T9 vertebral bodies (and C4 body on the localizer images), poorly characterized and indeterminate. 3. The T12 lesion demonstrates superior endplate compression deformity, posterior bony expansion, and suspected extraosseous ventral epidural component with craniocaudal spread, encroaching upon the bilateral T11-12 and T12-L1 neural foramina. 4. Moderate T12 spinal canal stenosis with dorsal displacement of the conus, but no convincing cord signal abnormality. Dictated by Glenna Balderas MD @ 08/17/2022 1:15:28 PM (Electronically Signed)
[2022-08-17] MEDS: HYDROmorphone 0.5 mg/0.5 ml inj IVP ×3 (05:48→20:12)
[2022-08-17] MEDS: SODIUM CHLORIDE 0.9 % (FLUSH) 10 ML SYRINGE 5 ML IVF ×4 (05:49→20:12)
--- NOTE | 2022-08-17 06:36 | PC.NURSE ---
END OF SHIFT NOTE: PT PLEASANT AND COOPERATIVE. A&Ox3. HX OF LEIOMYOSARCOMA OF UTERUS WITH METS TO LUNG, PELVIS AND SPINE. PT DENIES CP AND SOB. AMBULATES LONG DISTANCES WITH STRAIGHT CANE AT HOME; CANE PLACED IN PT'S CLOSET. PT USING WALKER. VSS ON RA; HR TACHYCARDIC 109 BPM. AFEBRILE. PT UNSURE OF LAST BM. PT REPORTS TAKING THC GUMMIES 5MG @[facility]; STARTED ONE WEEK AGO. PT WITH IV ACCESS TO RIGHT HAND #20G. PORT TO RIGHT CHEST. CALL LIGHT WITHIN PT?S REACH.?
--- NOTE | 2022-08-17 09:15 | PM.IMHP1 ---
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 She's had symptoms for weeks, recently significantly worse pain that has limited movement. She's also had numbness in her Left hip/thigh, no bowel or bladder incontinence. Has Oxycodone at home for pain, previously effective but ineffective in the past 24 hours and also causing nausea - takes prn. Last MRI per [facility] records: 04/03/2022 Critical Imaging: MRI pelvis and lumbar spine IMPRESSION: There are multiple metastatic lesions throughout the pelvis, the largest of which are present within the left pubic body and left iliac wing. There are associated nondisplaced pathologic fractures of the left superior and inferior pubic ramus. Additional small lesions are seen within the proximal left femur Findings by level: T12-L1: No spinal or foraminal stenosis. L1-L2: No spinal or foraminal stenosis. L2-L3: No spinal or foraminal stenosis. L3-L4: Mild bilateral facet arthropathy. No spinal or foraminal stenosis. L4-L5: A disc bulge with mild bilateral facet arthropathy and ligamentum flavum infolding. No spinal or foraminal stenosis. L5-S1: Moderate bilateral facet arthropathy. No spinal or foraminal stenosis. ER Course and findings: - some relief with IV Dilaudid for pain control - admitted for urgent MRI Rachel had her MRIs this morning, still having pain. Also nauseated intermittently with poor appetite. No other concerns for hospitalist team. Past Medical history updated below. Review of Systems Status of ROS: Reports: 10 or more systems reviewed and unremarkable except as noted in History and below Narrative: - specifically denies bowel or bladder dysfunction [facility] Medical History (Updated 08/17/22 @ 13:20 by Nolvia Law MD) Essential hypertension ?I10 - Essential (primary) hypertension (ICD-10) Malignant neoplasm metastatic to lung ?C78.00 - Secondary malignant neoplasm of unspecified lung (ICD-10) 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 - Malignant neoplasm of uterus, part unspecified (ICD-10) History of radiation therapy ?Z92.3 - Personal history of irradiation (ICD-10) History of radiation therapy ?Z92.3 - Personal history of irradiation (ICD-10) DVT (deep venous thrombosis) ?I82.409 - Acute embolism and thrombosis of unspecified deep veins of unspecified lower extremity (ICD-10) Surgical History (Updated 08/17/22 @ 09:18 by Nolvia Law MD) H/O hysterectomy with oophorectomy Status post cryoablation ?Z98.890 - Other specified postprocedural states (ICD-10) Social History (Updated 08/17/22 @ 13:08 by Nolvia Law MD) Narrative: Lives with [place] (MDM if needed) and 4 children. Nonsmoker, no ETOH. Full Code What is your current living situation: I presently have a place to live Problems where you live: no known problems Problems where you live details: N/A In the past 12 months, utilities in danger of being shut off: no In the past 12 mos, have been you worried that your food would run out before you had money to buy more?: never true In the past 12 mos, the food you bought just didn't last and you didn't have money to buy more?: never true Highest level of school completed/degree received: Associate degree: academic program Smoking Status: Former smoker Do you use any of these nicotine containing products: None How often do you have a drink containing alcohol: never How often do you have six or more drinks on one occasion: Never AUDIT-C Alcohol total score: 0 Non-prescribed substance use: marijuana (any form) Caffeine: Yes (30 FL OZ ICE COFFEE DAILY) How often does anyone, including family, friends and others, physically hurt you: How often does anyone, including family, friends and others, insult or talk down to you: How often does anyone, including family, friends and others, threaten you with harm: How often does anyone, including family, friends and others, scream or curse at you: Meds Home Medications and Allergies Home Medications Medication Instructions Recorded Confirmed Type amlodipine 5 mg tablet 5 mg PO DAILY 08/22/21 08/17/22 History hydrochlorothiazide 25 mg tablet 25 mg PO DAILY 08/22/21 08/17/22 History losartan 100 mg tablet 100 mg PO DAILY 08/22/21 08/17/22 History aspirin 81 mg tablet,delayed 81 mg PO DAILY 04/14/22 08/17/22 History release (Adult Aspirin Regimen) TURKEY TAIL MUSHROOM PO DAILY 08/17/22 History apixaban 5 mg tablet (Eliquis) 5 mg PO BID 08/17/22 08/17/22 History cholecalciferol (vitamin D3) 50 50 mcg PO DAILY 08/17/22 08/17/22 History mcg (2,000 unit) tablet (Vitamin D3) citalopram 40 mg tablet 40 mg PO DAILY 08/17/22 08/17/22 History cyclobenzaprine 5 mg tablet 5 - 10 mg PO 3XD PRN 08/17/22 08/17/22 History docusate sodium 100 mg capsule 100 mg PO DAILY 08/17/22 08/17/22 History (Colace) lidocaine-prilocaine 2.5 %-2.5 % 1 applic topical PRN 08/17/22 History topical cream ondansetron HCl 8 mg tablet 8 mg PO Q8H PRN nausea 08/17/22 08/17/22 History oxycodone 5 mg tablet 5 - 10 mg PO Q4H PRN 08/17/22 08/17/22 History sennosides 8.6 mg tablet (Natural 8.6 - 17.2 mg PO DAILY PRN 08/17/22 08/17/22 History Senna Laxative) zinc sulfate PO DAILY 08/17/22 History Allergies Allergy/AdvReac Type Severity Reaction Status Date / Time fluconazole Allergy Mild nasuea Verified 07/25/22 08:20 Exam Narrative: Exam Narrative: GEN: Alert and oriented, nontoxic and laying in bed HEENT: EOMIs bilaterally, no scleral icterus CV: RRR, No concerning murmurs R: LCTA bilaterally without concerning wheezing, air movement adequate Ext: moving extremities spontaneously, no concerning edema Skin: No concerning skin lesions or rashes on exposed skin Psych: Appropriate Const: Vital Signs, click to edit/add: Vital Signs - 24 hr 08/17/22 02:06 08/17/22 03:18 08/17/22 04:20 Temperature 97.0 F L Pulse Rate [Apical ] Pulse Rate [Pulse Oximeter] 101 H 104 H 101 H Respiratory Rate 18 18 18 Blood Pressure [Le ft Arm] Blood Pressure [Le ft Upper Arm] 127/79 129/81 Pulse Oximetry 97 99 Oxygen Delivery Me thod Room Air Room Air 08/17/22 05:04 08/17/22 05:04 Temperature 97.6 F Pulse Rate [Apical ] 102 H Pulse Rate [Pulse Oximeter] 109 H Respiratory Rate 16 Blood Pressure [Le ft Arm] 128/79 Blood Pressure [Le ft Upper Arm] Pulse Oximetry 96 96 Oxygen Delivery Me thod Room Air Room Air Hospitalist - H&P: Result Labs Labs: Short CBC 08/17/22 Range/Units 02:30 WBC 8.41 (4.50-11.00) K/uL Hgb 12.2 (12.0-16.0) gm/dL Hct 35.5 (33.0-51.0) % Plt Count 286 (140-440) K/uL BMP 08/17/22 02:30 Sodium 138 Potassium 3.7 Chloride 104 Carbon Dioxide 26 BUN 16 Creatinine 0.5 Glucose 163 H Calcium 9.6 Assessment and Plan Assessment and plan (1) Back pain: Problem comment: - MRIs performed this morning, results pending; will push images to [facility] - poor control of pain at this time with iatrogenic nausea - after discussion, will start low dose Fentanyl patch, schedule 1300mg APAP Q8H, continue prn Oxycodone with prn antiemetics Status: Acute (2) Leiomyosarcoma of uterus: Problem comment: - primarily managed through [facility] Status: Acute (3) Essential hypertension: Problem comment: - soft BPs on admission, holding home HCTZ and Amlodipine Status: Acute Plan - pain management per above - further recs from [facility] regarding treatment for MRI findings - likely home tomorrow if tolerates the above medication changes
[2022-08-17] MEDS: LORazepam 1 MG TABLET PO (09:55)
[2022-08-17] MEDS: ACETAMINOPHEN 325 MG TABLET 1300 MG PO ×2 (13:26→20:11)
[2022-08-17] MEDS: fentaNYL 12 mcg/hr PATCH 1 PATCH TRANSDERMA (13:26)
[2022-08-17] MEDS: CITALOPRAM HYDROBROMIDE 20 MG TABLET 40 MG PO (13:32)
[2022-08-17] MEDS: APIXABAN 5 MG TABLET PO ×2 (13:33→23:00)
--- NOTE | 2022-08-17 14:13 | PC.NURSE ---
Pt alert and oriented. Pt pleasant. Pt up independently in room with walker. Pt has had pain ranging from2-5; See EMAR for intervention. Fentanyl patch placed on Left shoulder early afternoon. Pt was in MRI for late morning/early afternoon. Pt has had little appetite.
--- NOTE | 2022-08-17 14:28 | PC.NURSE ---
Pt had some nausea with medication administration; nausea medication administered.
[2022-08-17] MEDS: OXYCODONE 5 MG TABLET PO ×3 (18:11→23:00)
[2022-08-17] MEDS: CYCLOBENZAPRINE HCL 10 MG TABLET PO (18:11)
--- NOTE | 2022-08-17 23:32 | PC.NURSE ---
Shift [id number]- Patient states adequate pain relief this evening. See eMAR for pain medication administrations. She is educated and encouraged to use pain medications to stay ahead of the pain rather than wait. She is agreeable with this. She is up independently. Ice applied, though patient removes after a short time. Zofran also administered as eligible to control nausea.
[2022-08-18 03:00] VITALS: BP 100/66; PULSE 85; RESP 16; TEMP 36.9; O2SAT 93
[2022-08-18] MEDS: ACETAMINOPHEN 325 MG TABLET 1300 MG PO (05:05)
--- NOTE | 2022-08-18 05:45 | PC.NURSE ---
Shift note: Pt uis doing well as pain has reduced. Pt rated pain between 2 and 4. Ambulate with A1 and walker in room. Vitally stable.
[2022-08-18 07:00] VITALS: BP 119/75; PULSE 88; PULSE 89; RESP 16; TEMP 36.9; O2SAT 96
[2022-08-18] MEDS: APIXABAN 5 MG TABLET PO (09:36)
[2022-08-18] MEDS: CITALOPRAM HYDROBROMIDE 20 MG TABLET 40 MG PO (09:36)
[2022-08-18] MEDS: SODIUM CHLORIDE 0.9 % (FLUSH) 10 ML SYRINGE 5 ML IVF (09:36)
[2022-08-18] MEDS: OXYCODONE 5 MG TABLET PO (09:36)
[2022-08-18] MEDS: ONDANSETRON 2 MG/ML inj 4 MG IVP (09:41)
--- NOTE | 2022-08-18 13:17 | P.DS_ITS ---
DS: Providers Provider Date Seen: 08/18/22 Date of admission: 08/17/22 04:22 Primary care physician: Epi Stinson MD Admitting Clinician: Osmel Henderson MD Attending Physician on discharge: Charly Alberts MD Date of Discharge: 08/18/22 DS: Diagnosis Discharge Diagnosis (1) Metastatic cancer: Status: Acute (2) Leiomyosarcoma of uterus: Status: Acute Problem details: - primarily managed through [place] (3) Essential hypertension: Status: Acute Problem details: - soft BPs on admission, holding home HCTZ and Amlodipine DS: Summary Hospital Course Hospital Course: Rachel Rios is a 52 year old female with 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 She's had symptoms for weeks, recently significantly worse pain that has limited movement. She's also had numbness in her Left hip/thigh, no bowel or bladder incontinence. Has Oxycodone at home for pain, previously effective but ineffective in the past 24 hours and also causing nausea - takes prn. Recieves oncology care through [facility]. She was started on fentanyl patch, 12 mcg/hr. Overnight she has had significant improvement in her back pain. She is concerned about constipation She is anxious to go home. Status at Discharge Functional status at discharge: independent ambulation Overall status at discharge: patient is back to baseline Time Spent with Patient Time attestation: Total time spent providing and/or coordinating discharge services: Time spent: Greater than 30 minutes Exam Narrative: Exam Narrative: She is alert and appears in no distress. She gives her own history. Breathing is unlabored. Abdomen is soft without tenderness. She moves fairly well with manageable back pain. No significant edema. Const: Vital Signs, click to edit/add: Vital Signs - 24 hr 08/17/22 15:17 08/17/22 19:00 08/17/22 23:00 Temperature 98.4 F 98.4 F Pulse Rate [Apical ] 88 88 Pulse Rate [Pulse Oximeter] 88 85 Respiratory Rate 16 16 16 Blood Pressure [Le ft Arm] 113/73 113/73 Pulse Oximetry 94 94 Oxygen Delivery Me thod Room Air 08/17/22 23:00 08/18/22 03:00 08/18/22 07:00 Temperature 98.7 F 98.5 F Pulse Rate [Apical ] 88 Pulse Rate [Pulse Oximeter] 85 85 89 Respiratory Rate 16 16 16 Blood Pressure [Le ft Arm] 103/67 100/66 Pulse Oximetry 94 93 Oxygen Delivery Me thod Room Air Room Air 08/18/22 07:00 Temperature 98.5 F Pulse Rate [Apical ] Pulse Rate [Pulse Oximeter] 89 Respiratory Rate 16 Blood Pressure [Le ft Arm] 119/75 Pulse Oximetry 96 Oxygen Delivery Me thod Room Air Documenting provider has reviewed patient's vital signs: yes DS: Data Imaging MR - Other: Radiologist's impression: Technique: Multiplanar, multisequence, MRI of the thoracic spine, obtained without and with contrast. A total of 15 mL of Dotarem IV contrast was administered. Comparison: Same-day MRI lumbar spine, CT chest abdomen pelvis 07/25/2022 Findings: Normal static alignment of the thoracic spine. No significant spondylolisthesis. Localizing images demonstrate sclerotic lesion at the C4 vertebral body, indeterminate, although suspicious for metastatic disease given patient history. Sclerotic, enhancing lesion involving most of the T7 vertebral body, compatible with metastatic disease. Sclerotic, enhancing lesion involving the anterior T11 vertebral body, compatible with metastatic disease. Sclerotic, enhancing lesion infiltrating the T12 vertebral body, with superior endplate compression deformity, posterior bony expansion, and suspected extraosseous ventral epidural component demonstrating craniocaudal spread, encroaching upon the bilateral T11-12 and T12-L1 neural foramina. Additional smaller sclerotic foci are noted at the T5 and T9 vertebral bodies, not well characterized. The T12 expansile vertebral body lesion contributes to moderate spinal canal stenosis, with dorsal displacement of the conus and partial effacement of the thecal sac. No convincing cord signal abnormality identified. Incidental partially visualized lipoma in the upper back at the level of the cervicothoracic junction, measuring greater than 6 cm. IMPRESSION: 1. Sclerotic enhancing vertebral body lesions at T7, T11, and T12, compatible with metastatic disease. 2. Small sclerotic foci at the T5 and T9 vertebral bodies (and C4 body on the localizer images), poorly characterized and indeterminate. 3. The T12 lesion demonstrates superior endplate compression deformity, posterior bony expansion, and suspected extraosseous ventral epidural component with craniocaudal spread, encroaching upon the bilateral T11-12 and T12-L1 neural foramina. 4. Moderate T12 spinal canal stenosis with dorsal displacement of the conus, but no convincing cord signal abnormality. Technique: Multiplanar, multisequence, MRI of the lumbar spine, obtained without and with contrast. A total of 15 mL of Dotarem IV contrast was administered. Comparison: Same-day MRI thoracic spine, CT chest abdomen pelvis 07/25/2022 Findings: Slight thoracolumbar levocurvature. Preserved lumbar lordosis. Partially visualized sclerotic, enhancing, T11 anterior vertebral body lesion. Re-demonstration of the infiltrative, sclerotic T12 vertebral body lesion. Better visualized on these images are cortical defects at the superior endplate and posterior wall, with focal bony edema at the right greater than left pedicles. Again seen is ill-defined ventral epidural fullness concerning for extra osseous neoplasm, with craniocaudal spread encroaching upon the bilateral T11-T12 and T12-L1 neural foramina. Bony expansion/cortical retropulsion dorsally displaces the conus,, with partial thecal sac effacement and moderate spinal canal stenosis. No convincing cord signal abnormality identified. T1 hyperintense lesions at L2 and L3 are most compatible with intraosseous hemangiomas. The conus medullaris terminates at approximately L1. No suspicious findings identified within the lumbar prevertebral or paraspinal soft tissues. The included SI joints are unremarkable. T12-L1, L1-L2, L2-L3, L3-L4: No significant neural foraminal or spinal canal stenosis. L4-L5: Mild diffuse disc bulge, moderate facet arthropathy. Moderate left neuroforaminal stenosis. No significant right neural foramina or spinal canal stenosis. L5-S1: Moderate facet arthropathy. Moderate left neural foraminal stenosis. No significant right neural foraminal or spinal canal stenosis. Impression: 1. The infiltrative, enhancing T12 vertebral body lesion is better visualized on this exam, demonstrating cortical defects at the superior endplate and posterior wall, with patchy bony edema extending to the right greater than left pedicles, compatible with pathologic fracture. 2. Posterior bony expansion and suspected ventral epidural extraosseous component contribute to moderate spinal canal stenosis, as well as encroachment upon the bilateral T11-T12 and T12-L1 neural foramina. 3. T1 hyperintense vertebral body lesions at L2 and L3 are most compatible with intraosseous hemangiomas. 4. Lumbar spondylosis contributes to moderate left-sided neural foraminal stenosis at L4-5 and L5-S1. TECHNIQUE: MR of the pelvis without and with intravenous contrast; 15 cc of Dotarem contrast was injected. FINDINGS: A 2.3 cm soft tissue nodule identified in the left pelvis indicating metastatic deposit. Status post? hysterectomy. Metastatic disease identified involving the left pubic bone, superior and inferior pubic rami on the left with pathological fracture. Infiltrating metastatic deposits identified within the left iliac bone. Status post? hysterectomy. Impression : 1. Metastatic disease involving the left pubic bone and superior and inferior pubic rami with pathological fracture. 2. Infiltrating metastatic disease involving the left iliac bone. 3. Soft tissue nodule identified in the left pelvis measuring 2.3 cm indicating metastatic deposit. Discharge Plan Discharge Disposition: Home, Self-Care Date of Admission: 08/17/22 04:22 Attending Provider on Discharge: Qasim Alberts Primary Care Provider: Epi Stinson Condition: Improved Anticipated Discharge Date/Time: 08/18/22 10:30 Discharge Medications: New fentanyl 12 mcg/hr Patch 72 Hour 1 patch transdermal Q72H Qty: 10 0RF acetaminophen 500 mg capsule 1,000 mg PO Q6H PRNQty: 100 0RF celecoxib 100 mg capsule 100 mg PO BID Qty: 60 0RF Continued citalopram 40 mg tablet 40 mg PO DAILY ondansetron HCl 8 mg tablet 8 mg PO Q8H PRN (Reason: nausea) Eliquis 5 mg tablet 5 mg PO BID cholecalciferol (vitamin D3) [Vitamin D3] 50 mcg (2,000 unit) tablet 50 mcg PO DAILY lidocaine-prilocaine 2.5-2.5 % cream 1 applic topical PRN Rx Instructions: FOR PORT ACCESS zinc sulfate PO DAILY oxycodone 5 mg tablet 5 - 10 mg PO Q4H PRN (Reason: pain) Qty: 50 0RF Rx Instructions: 5-10 mg Changed sennosides [Natural Senna Laxative] 8.6 mg tablet 8.6 - 17.2 mg PO DAILY Qty: 100 0RF Discontinued amlodipine 5 mg tablet 5 mg PO DAILY Patient Comments: TAKE 1 TABLET BY MOUTH EVERY DAY hydrochlorothiazide 25 mg tablet 25 mg PO DAILY Patient Comments: TAKE 1 TABLET BY MOUTH EVERY DAY losartan 100 mg tablet 100 mg PO DAILY Patient Comments: TAKE 1 TABLET BY MOUTH EVERY DAY aspirin [Adult Aspirin Regimen] 81 mg tablet,delayed release (DR/EC) 81 mg PO DAILY Hold Instructions: STARTED ELIQUIS cyclobenzaprine 5 mg tablet 5 - 10 mg PO 3XD PRN docusate sodium [Colace] 100 mg capsule 100 mg PO DAILY TURKEY TAIL MUSHROOM PO DAILY Discharge Orders: Discharge Order (Routine); Ordered 08/18/22 Ordered By: Qasim Alberts Patient Education: Acetaminophen (By mouth), Fentanyl (Absorbed through the skin), Celecoxib (By mouth) Additional Instructions: Contact your [facility] oncologist on Saturday to make a follow-up plan Activity Level: No Restrictions Discharge Diet: Regular Follow Up Appointments: Epi Stinson MD [Primary Care Provider] - 08/29/22 11:15 am ([facility]) Forms: LIA Info Instructions
--- NOTE | 2022-08-18 14:05 | PC.NURSE ---
D/C INSTRUCTIONS REVIEWED. IV REMOVED, PT DENIED ANY FURTHER QUESTIONS. DISCHARGED AT 1243
--- NOTE | 2022-08-20 11:18 | PC.NURSE ---
Patient called stating that [facility] in [place] did not have the Fentanyl patches in stock. Patient requested that we send to a different pharmacy. Called [facility] pharmacy and they confirmed that they have 10 in stock. Prescription was changed to [facility]. Patient also needs a Prior Auth. Requested that they fax this to us immediately.
== END 2022-08-18 12:43 | disposition home or self-care (01) ==
LOC: ED 04:08 → MEDSURG 04:23
PROVIDERS: Admitting Provider Internal Medicine; Emergency Provider Emergency Medicine; PCP Family Medicine; Visit Provider Internal Medicine
DX: C55 Malignant neoplasm of uterus, part unspecified (principal); M89.8X8 Other specified disorders of bone, other site; C79.89 Secondary malignant neoplasm of other specified sites; C78.00 Secondary malignant neoplasm of unspecified lung; M84.550A Pathological fracture in neoplastic disease, pelvis, initial encounter for fracture; I10 Essential (primary) hypertension; R79.82 Elevated C-reactive protein (CRP); R20.0 Anesthesia of skin; F32.A Depression, unspecified; F12.90 Cannabis use, unspecified, uncomplicated; Z98.890 Other specified postprocedural states; M54.50 Low back pain, unspecified; Z92.3 Personal history of irradiation; Z87.891 Personal history of nicotine dependence; Z86.718 Personal history of other venous thrombosis and embolism
CPT/HCPCS: 36415; 72157; 72158; 72197; 80048; 83605; 85025; 86140; 96361; 96374; 96375; 96376; 99284; A9270; A9575; G0378; J1170; J2405; J7030

== ENCOUNTER 2022-09-11 18:29 | Observation (INO) | payer OTHER, SELFPAY ==
[2022-09-11] VITALS (11 sets, daily range): BP systolic 116–134; BP diastolic 38–77; PULSE 99–131; RESP 14–20; TEMP 36.8–39.6; O2SAT 88–98; BMI 33.9; BMI 35.7
--- NOTE | 2022-09-11 18:48 | ED_ITS ---
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 Patient started new chemotherapy today and noted increased back pain and pelvis pain on the way home. She has known pathologic fractures of the pelvis from February and lumbar spine dating back to July. She is chronically on fentanyl 25 mcg as well as oxycodone 15 mg every 4 hours although she says she does not take the oxycodone regularly. Denies headache, neck pain, chest pain, shortness of breath, abdominal pain, diarrhea, does note some nausea vomiting which is been ongoing. Some pain in the left knee which has been going on for the last week or so, no fall or trauma. She has not taken anything for her fever. Related Data Home Medications Medication Instructions Recorded Confirmed apixaban 5 mg tablet (Eliquis) 5 mg PO BID 08/17/22 08/17/22 cholecalciferol (vitamin D3) 50 50 mcg PO DAILY 08/17/22 08/17/22 mcg (2,000 unit) tablet (Vitamin D3) citalopram 40 mg tablet 40 mg PO DAILY 08/17/22 08/17/22 lidocaine-prilocaine 2.5 %-2.5 % 1 applic topical PRN 08/17/22 topical cream ondansetron HCl 8 mg tablet 8 mg PO Q8H PRN nausea 08/17/22 08/17/22 zinc sulfate PO DAILY 08/17/22 Previous Rx's Medication Instructions Recorded acetaminophen 500 mg capsule 1,000 mg (2 x 500 mg) PO Q6H PRN 08/18/22 #100 caps celecoxib 100 mg capsule 100 mg PO BID #60 caps 08/18/22 oxycodone 5 mg tablet 5 - 10 mg (1 - 2 x 5 mg) PO Q4H 08/18/22 PRN pain #50 tabs sennosides 8.6 mg tablet (Natural 8.6 - 17.2 mg (1 - 2 x 8.6 mg) PO 08/18/22 Senna Laxative) DAILY #100 tabs fentanyl 12 mcg/hr transdermal 1 patch transdermal Q72H #10 ea 08/20/22 patch Allergies Allergy/AdvReac Type Severity Reaction Status Date / Time fluconazole Allergy Mild nasuea Verified 07/25/22 08:20 [facility] Medical History (Updated 09/11/22 @ 21:58 by Robin Cintron MD) Essential hypertension ?I10 - Essential (primary) hypertension (ICD-10) Malignant neoplasm metastatic to lung ?C78.00 - Secondary malignant neoplasm of unspecified lung (ICD-10) 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 - Malignant neoplasm of uterus, part unspecified (ICD-10) History of radiation therapy ?Z92.3 - Personal history of irradiation (ICD-10) History of radiation therapy ?Z92.3 - Personal history of irradiation (ICD-10) DVT (deep venous thrombosis) ?I82.409 - Acute embolism and thrombosis of unspecified deep veins of unspecified lower extremity (ICD-10) Surgical History (Updated 08/17/22 @ 09:18 by Nolvia Law MD) H/O hysterectomy with oophorectomy Status post cryoablation ?Z98.890 - Other specified postprocedural states (ICD-10) Social History (Updated 08/17/22 @ 13:08 by Nolvia Law MD) Narrative: Lives with [place] (MDM if needed) and 4 children. Nonsmoker, no ETOH. Full Code What is your current living situation?: I presently have a place to live Problems where you live: no known problems Problems where you live details: N/A In the past 12 months, utilities in danger of being shut off: no In the past 12 mos, have been you worried that your food would run out before you had money to buy more?: never true In the past 12 mos, the food you bought just didn't last and you didn't have money to buy more?: never true Highest level of school completed/degree received: Associate degree: academic program Smoking Status: Former smoker Do you use any of these nicotine containing products: None How often do you have a drink containing alcohol: never How often do you have six or more drinks on one occasion: Never AUDIT-C Alcohol total score: 0 Non-prescribed substance use: marijuana (any form) Caffeine: Yes (30 FL OZ ICE COFFEE DAILY) How often does anyone, including family, friends and others, physically hurt you : never How often does anyone, including family, friends and others, insult or talk down to you: rarely How often does anyone, including family, friends and others, threaten you with harm: never How often does anyone, including family, friends and others, scream or curse at you: never Exam Narrative Exam Narrative: General: Well-developed and well-nourished, no acute distress Head: Atraumatic and normocephalic Eyes: Pupils are equal reactive, extraocular motions intact, conjunctiva clear ENT: External nose and ears are normal, posterior pharynx without erythema or exudate Neck: No midline cervical tenderness, full spontaneous range of motion the neck, trachea midline, no adenopathy Heart: Tachycardic rate and rhythm no murmurs or thrills Lungs: Clear to auscultation bilaterally without wheezes or crackles Abdomen: Soft, nontender, nondistended with active bowel sounds Musculoskeletal: No tenderness, deformity, or edema. Left knee without effu nathan, redness, warmth, or pain with passive movement. Neurologic: Awake, alert, and oriented x3, no gross focal neurologic deficits, cranial nerves intact as tested Psych: Mood and affect are appropriate Skin: No rashes Const Vital Signs, click to edit/add: Vital Signs - 24 hr 09/11/22 18:39 09/11/22 19:05 09/11/22 20:30 Temperature 103.2 F H Pulse Rate [Right Pulse Oximeter] 131 H 124 H Respiratory Rate 20 16 18 Blood Pressure [Left Arm] 116/70 Blood Pressure [Right Upper Arm] 129/77 121/72 Pulse Oximetry 93 92 93 Oxygen Delivery Method Room Air Room Air Room Air Oxygen Flow Rate 09/11/22 20:42 09/11/22 21:00 09/11/22 21:30 Temperature Pulse Rate [Right Pulse Oximeter] 126 H 124 H Respiratory Rate 16 18 Blood Pressure [Left Arm] Blood Pressure [Right Upper Arm] 116/70 134/59 L Pulse Oximetry 95 88 97 Oxygen Delivery Method Room Air Nasal Cannula Room Air Room Air Oxygen Flow Rate 2 09/11/22 22:00 Temperature Pulse Rate [Right Pulse Oximeter] 118 H Respiratory Rate 18 Blood Pressure [Left Arm] Blood Pressure [Right Upper Arm] 125/50 L Pulse Oximetry 97 Oxygen Delivery Method Room Air Oxygen Flow Rate Course Course Hospital Course: Patient seen examined, prior records reviewed. Patient on chemotherapy who presents today with fever and increased pain of her back and pelvis where she has non pathologic fractures. Tachycardic and febrile initial exam, no hypotension, appears comfortable. Lungs are clear, the left knee has no effusion, redness, or warmth to suggest septic arthritis. Labs ordered along with CT scan chest, abdomen, and pelvis given her fever with no source and chronic opiate use which may decrease symptoms related to infection particularly intra-abdominal. Will re-scanned the lumbar spine and pelvis to evaluate for progression of her fractures as well as x-ray the left knee and femur due to neck pain. Dilaudid IV is ordered. Reevaluation(s) Time of Reevaluation #1: 20:09 Reevaluation #1: Labs so far with negative urinalysis, normal lactate. Although patient is febrile and tachycardic, at this point no other indicators of sepsis and will continue to monitor closely. Time of Reevaluation #2: 20:26 Reevaluation #2: Labs independently interpreted by me with normal white blood cell count, mild anemia, mild hyponatremia and hypokalemia, slight elevation in the AST and ALT. CT scan of the abdomen and pelvis independently interpreted by me does not demonstrate any acute findings, read demonstrates multiple metastatic nodules in the lungs bilaterally. CT scan of the thoracic spine demonstrates previously seen metastatic disease but does not demonstrate new or worsening compression fractures Time of Reevaluation #3: 21:03 Reevaluation #3: Spoke with Dr. Littlejohn, [facility]. Fever would not be expected with chemotherapy that patient received today, would anticipate possible jeremy of white cells in 7-10 days but for now do not treat as neutropenic fever. Radiology interpretation of abdominal x-ray with worsening metastatic disease in the lungs, stable metastasis of the left pubic ramus. Lumbar spine CT is stable. Additional Reevaluation(s): 9:59 p.m. care discussed with Dr. Henderson for admission. Request 2 L fluids which will be initiated. X-ray of the left femur does not demonstrate any acute abnormality. Vital Signs Vital signs: Initial Vital Signs Temperature 103.2 F H 09/11/22 18:39 Temperature Source Temporal Artery Scan 09/11/22 18:39 Pulse Rate 131 H 09/11/22 18:39 Respiratory Rate 20 09/11/22 18:39 Blood Pressure 129/77 09/11/22 18:39 Blood Pressure Mean 94 09/11/22 18:39 Blood Pressure Position Sitting 09/11/22 18:39 Pulse Oximetry 93 09/11/22 18:39 Oxygen Delivery Method Room Air 09/11/22 18:39 Vital Signs Temperature 103.2 F H 09/11/22 18:39 Pulse Rate 131 H 09/11/22 18:39 Respiratory Rate 20 09/11/22 18:39 Blood Pressure 129/77 09/11/22 18:39 Pulse Oximetry 93 09/11/22 18:39 Oxygen Delivery Method Room Air 09/11/22 18:39 Temperature 103.2 F H 09/11/22 18:39 Pulse Rate 118 H 09/11/22 22:00 Respiratory Rate 18 09/11/22 22:00 Blood Pressure 125/50 L 09/11/22 22:00 Pulse Oximetry 97 09/11/22 22:00 Oxygen Delivery Method Room Air 09/11/22 22:00 Oxygen Flow Rate 2 09/11/22 20:42 MDM - Fever Lab Data Labs: Lab Results 09/11/22 09/11/22 Range/Units 19:25 19:45 WBC 6.40 (4.50-11.00) K/uL RBC 3.59 L (4.00-5.20) m/uL Hgb 11.1 L (12.0-16.0) gm/dL Hct 33.9 (33.0-51.0) % MCV 94 (80-100) fL MCH 31 (26-34) pg MCHC 33 (32-36) gm/dL RDW Coeff of Mandy 13.0 (11.5-15.5) % Plt Count 205 (140-440) K/uL Neut % (Auto) 87.2 H (42.0-72.0) % Lymph % (Auto) 5.2 L (20-44) % [place] % (Auto) 6.7 (0.0-11.0) % Eos % (Auto) 0.2 (0.0-7.0) % Baso % (Auto) 0.2 (0.0-3.0) % Neut # (Auto) 5.60 (1.7-7.0) K/uL Lymph # (Auto) 0.30 L (0.90-2.90) K/uL [place] # (Auto) 0.40 (0.00-0.90) K/UL Eos # (Auto) 0.01 (0.00-0.50) K/uL Baso # (Auto) 0.01 (0.00-0.30) K/uL Abs Immat Gran (auto) 0.03 (0.00-0.30) K/uL Imm/Tot Granulo (auto) 0.5 % Sodium 130 L (135-149) mmol/L Potassium 3.5 L (3.6-5.1) mmol/L Chloride 97 (96-114) mmol/L Carbon Dioxide 29 (20-32) mmol/L BUN 17 (7-30) mg/dL Creatinine 0.5 (0.5-1.5) mg/dL Estimated Creat Clear 124.61 Estimated GFR 113 ml/min Glucose 125 H (60-115) mg/dL Lactate 0.8 (0.5-1.9) mmol/L Calcium 8.5 (8.4-10.6) mg/dL Magnesium 1.7 (1.5-2.6) mg/dL Total Bilirubin 0.7 (0.1-1.5) mg/dL Direct Bilirubin 0.1 (0.0-0.5) mg/dL AST 52 H (12-35) U/L ALT 88 H (4-35) U/L Alkaline Phosphatase 140 (40-150) U/L Total Protein 6.5 (6.0-8.3) g/dL Albumin 3.5 (3.3-5.0) g/dL Lipase 31 (23-300) U/L Urine Color Yellow (Yellow) Urine Appearance Clear (Clear) Urine pH 6.0 (5.0-8.5) Ur Specific [place] 1.025 (1.000-1.030) Urine Protein Negative (Negative) Urine Glucose (UA) Negative (Negative) Urine Ketones Negative (Negative) Urine Blood 1+ A (Negative) Urine Nitrite Negative (Negative) Urine Bilirubin Negative (Negative) Urine Urobilinogen 1.0 (0.2-1.0) Ur Leukocyte Esterase Negative (Negative) Urine RBC 0-2 (0-2) Urine WBC 2-5 (0-5) Ur Squamous Epith Cells Few (None-Few) Urine Bacteria None (None) SARS-CoV-2 (PCR) Negative SARS-CoV-2 (Negative) Influenza Type A (PCR) Negative PCR FLU A (Negative) Influenza Type B (PCR) Negative PCR FLU B (Negative) RSV (PCR) Negative PCR RSV (Negative) ECG Data Attestation: I personally reviewed and interpreted this ECG as follows: ECG interpretation date: 09/11/22 ECG interpretation time: 20:42 Prior ECG tracings: not available for review Interpretation: Sinus rhythm rate 129, WI 140, QTC 436, no acute ischemic changes normal axis, normal intervals. No prior for comparison Discharge Plan Discharge Clinical Impression: Malignant neoplasm metastatic to lung, Fever, Pathologic fracture, Metastatic cancer, Leiomyosarcoma of uterus Patient Disposition: Admitted As Observation
--- NOTE | 2022-09-11 19:05 | CRLHL7_ITS ---
For Patients: As a result of the Century Cures Act, medical imaging exams and procedure reports are released immediately into your electronic medical record. You may view this report before your referring provider. If you have questions, please contact your health care provider. INDICATION: BACK PAIN. LEIOMYOSARCOMA OF UTERUS TECHNIQUE: CT abdomen and pelvis acquired with 99 cc Isovue 370 IV contrast. COMPARISON: CT dating back to June 2022. FINDINGS: Lower chest: Increasing size and number of numerous pulmonary metastases within the lung bases. ABDOMEN: Liver: Normal enhancement. No focal suspicious hepatic lesions. Gallbladder and biliary: Normal gallbladder without radiopaque stone. Normal caliber bile ducts. Spleen: Normal size and enhancement. Pancreas: Normal enhancement without peripancreatic inflammatory changes or ductal dilatation. Adrenal glands: Normal adrenal glands. Kidneys and ureters: Normal enhancement. No radio-opaque calculi. No hydroureteronephrosis. Subcentimeter hypodensities are too small to characterize however statistically represent cysts. GI tract: The stomach is relatively decompressed. Normal caliber small and large bowel loops. Normal appendix. Vascular structures: Patent abdominal aorta with atherosclerotic vascular calcifications. Lymph nodes: No lymphadenopathy in the abdomen or pelvis by size criteria. Peritoneum: No free air, free fluid, or focal drainable fluid collection. Stable moderate sized fat containing ventral hernia, supraumbilical. PELVIS: Genitourinary system: Punctate focus of air within the urinary bladder, may be iatrogenic. Stable nodularity involving the left vaginal cuff of patient`s hysterectomy. SKELETAL STRUCTURES AND SOFT TISSUES: Stable subcutaneous nodule in the right lateral gluteal subcutaneous tissues. Stable areas of osseous erosion involving the left pubic rami and left nonacute inferior left pubic ramus fracture, potentially pathologic. Stable diffuse metastases throughout the skeleton. IMPRESSION: 1. Worsening disease as characterized by increasing size and number of numerous pulmonary metastases throughout the lung bases. 2. Stable erosion/metastasis involving the left pubic rami. Stable sclerotic metastases throughout the skeleton. Please note that all CT scans at this facility use dose modulation, iterative reconstruction, and/or weight-based dosing when appropriate to reduce radiation dose to as low as reasonably achievable. Dictated by Margarito Bal MD @ 09/11/2022 9:03:56 PM (Electronically Signed)
--- NOTE | 2022-09-11 19:05 | CRLHL7_ITS ---
For Patients: As a result of the Century Cures Act, medical imaging exams and procedure reports are released immediately into your electronic medical record. You may view this report before your referring provider. If you have questions, please contact your health care provider. INDICATION: .BACK PAIN. LEIOMYOSARCOMA TECHNIQUE: CT lumbar spine without contrast. COMPARISON: Exams dating back to April 2022. FINDINGS/IMPRESSION: No acute fracture. No listhesis. Scattered areas of bony demineralization. L3 vertebral body hemangioma. Stable sclerotic focus along the superior endplate of S1. No prevertebral soft tissue hematoma or swelling. No soft tissue abnormality is identified. Mild generalized disc space narrowing. Please note that all CT scans at this facility use dose modulation, iterative reconstruction, and/or weight-based dosing when appropriate to reduce radiation dose to as low as reasonably achievable. Dictated by Margarito Bal MD @ 09/11/2022 9:07:49 PM (Electronically Signed)
--- NOTE | 2022-09-11 19:05 | CRLHL7_ITS ---
For Patients: As a result of the Century Cures Act, medical imaging exams and procedure reports are released immediately into your electronic medical record. You may view this report before your referring provider. If you have questions, please contact your health care provider. INDICATION: Pain. Concern for new metastatic disease. History of uterine cancer. TECHNIQUE: Two views left femur. IMPRESSION: Subacute appearing fracture of the parasymphyseal superior and inferior pubic rami. Prominent lucency in the superior ramus likely metastatic disease. No femoral fracture. Anatomic alignment with no degenerative change at the hip or knee. Dictated by Denys Snider MD @ 09/11/2022 10:13:31 PM (Electronically Signed)
--- NOTE | 2022-09-11 19:08 | CRLHL7_ITS ---
For Patients: As a result of the Century Cures Act, medical imaging exams and procedure reports are released immediately into your electronic medical record. You may view this report before your referring provider. If you have questions, please contact your health care provider. INDICATION: .BACK PAIN. LEIOMYOSARCOMA OF UTERUS TECHNIQUE: CT thoracic spine without contrast. COMPARISON: Exams dating back to June 1999. FINDINGS/IMPRESSION: No acute fracture. No listhesis. Stable sclerosis involving the T5, T7, T11, and T12 vertebral bodies, representing metastasis, potentially treated. Stable chronic height loss of the T12 vertebral body. No prevertebral soft tissue hematoma or swelling. No soft tissue abnormality is identified. Mild generalized disc space narrowing. Redemonstration of diffuse pulmonary metastases. Please note that all CT scans at this facility use dose modulation, iterative reconstruction, and/or weight-based dosing when appropriate to reduce radiation dose to as low as reasonably achievable. Dictated by Margarito Bal MD @ 09/11/2022 9:10:11 PM (Electronically Signed)
[2022-09-11 19:30] LABS: Appearance Urine Clear (Clear); Bilirubin Urine Negative (Negative); Blood Urine 1+ (Negative); Glucose Urine Negative (Negative); Ketones Urine Negative (Negative); Leukocyte Esterase Urine Negative (Negative); Nitrite Urine Negative (Negative); Protein Urine Negative (Negative); Specific Gravity Urine 1.025 (1.000-1.030)
[2022-09-11 19:35] LABS: Color Urine Yellow (Yellow)
[2022-09-11 19:50] LABS: RBC Urine 0-2 (0-2); Squamous Epithelial Cell Urine Few (None-Few)
[2022-09-11 19:58] LABS: Lactate* 0.8 mmol/L (0.5-1.9)
[2022-09-11 20:09] LABS: Basophils Absolute Auto 0.01 K/uL (0.00-0.30); Basophils Percent Auto 0.2 % (0.0-3.0); Eosinophils Absolute Auto 0.01 K/uL (0.00-0.50); Eosinophils Percent Auto 0.2 % (0.0-7.0); Hematocrit 33.9 % (33.0-51.0); Hemoglobin* 11.1 gm/dL (12.0-16.0); Immature Granulocytes Abs Auto 0.03 K/uL (0.00-0.30); Immature Granulocytes Pct Auto 0.5 %; Lymphocytes Percent Auto 5.2 % (20-44); Mean Corpuscular HGB Conc 33 gm/dL (32-36); Mean Corpuscular Hemoglobin 31 pg (26-34); Mean Corpuscular Volume 94 fL (80-100); Monocytes Percent Auto 6.7 % (0.0-11.0); Neutrophils Percent Auto 87.2 % (42.0-72.0); Platelet Count* 205 K/uL (140-440); Red Blood Count 3.59 m/uL (4.00-5.20)
[2022-09-11 20:10] LABS: Slide Review Reflex No
[2022-09-11 20:12] LABS: Albumin* 3.5 g/dL (3.3-5.0); Chloride* 97 mmol/L (96-114)
[2022-09-11 20:13] LABS: Potassium* 3.5 mmol/L (3.6-5.1); Sodium* 130 mmol/L (135-149)
[2022-09-11 20:15] LABS: Bilirubin Direct* 0.1 mg/dL (0.0-0.5); Bilirubin Total* 0.7 mg/dL (0.1-1.5); Carbon Dioxide* 29 mmol/L (20-32); Creatinine* 0.5 mg/dL (0.5-1.5); Est. Creatinine Clearance* 124.61; Estimated Glomerular Filt Rate 113 ml/min
[2022-09-11 20:16] LABS: Alanine Aminotransferase* 88 U/L (4-35); Alkaline Phosphatase* 140 U/L (40-150); Aspartate Amino Transferase* 52 U/L (12-35); Blood Urea Nitrogen* 17 mg/dL (7-30); Calcium* 8.5 mg/dL (8.4-10.6); Glucose* 125 mg/dL (60-115); Lipase* 31 U/L (23-300); Magnesium* 1.7 mg/dL (1.5-2.6); Total Protein* 6.5 g/dL (6.0-8.3)
[2022-09-11] MEDS: HYDROmorphone 0.5 mg/0.5 ml inj 1 MG IVP (20:38)
[2022-09-11] MEDS: ACETAMINOPHEN 500 MG TABLET 1000 MG PO (20:38)
[2022-09-11] MEDS: 0.9 % SODIUM CHLORIDE 1000 ml 1,000 ML IV ×2 (20:40→22:53)
[2022-09-11] MEDS: ONDANSETRON 2 MG/ML inj 4 MG IVP (20:40)
--- NOTE | 2022-09-11 20:54 | CRLHL7_ITS ---
For Patients: As a result of the Cures Act, medical imaging exams and procedure reports are released immediately into your electronic medical record. You may view this report before your referring provider. If you have questions, please contact your health care provider. INDICATION: Fever. History of metastatic uterine cancer. COMPARISON: CT chest 25 Jul 2022. IMPRESSION: Numerous bilateral moderately dense round metastases. Allowing for differences in technique, metastases appear increased from comparison. Pulmonary vascularity is normal. No definite new pneumonia. Dictated by Denys Snider MD @ 09/11/2022 10:15:08 PM (Electronically Signed)
[2022-09-11 21:27] LABS: SARS PCR* Negative SARS-CoV-2 (Negative)
[2022-09-11] MEDS: HYDROmorphone 0.5 mg/0.5 ml inj IVP (22:00)
[2022-09-11 22:06] LABS: PCR FLU A Negative PCR FLU A (Negative); PCR FLU B Negative PCR FLU B (Negative); PCR RSV Negative PCR RSV (Negative)
--- NOTE | 2022-09-11 23:01 | ED.NURSE ---
given report to Jackie Reilly and plan to admit to room 260 via cart with familly present at the bedside. patient's pain improved with the 2nd dose of Dilaudid.
--- NOTE | 2022-09-11 23:13 | PM.IMHP1 ---
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 Patient started a new chemotherapeutic agent today, gemcitabine. She received this at the [place], [place]. Recently admitted to our hospital on 08/17/2022 and discharged on 08/18/2022 with similar pain related complaints. She was started on fentanyl transdermal patch 12 mcg per hour and remarkably her pain improved substantially. Pain remained well controlled on fentanyl patch plus p.r.n. oxycodone for about 2 weeks. Thereafter her pain has slowly but certainly become increasingly problematic and less controlled. Notes the pain is in her spine where she had a pathologic fracture around the T12 area, and interestingly it is also in her knee today. Denies any pain, trauma, injury. Denies cough, dyspnea, chest heaviness, pressure, tightness, or pain. Denies abdominal discomfort, dysuria, urgency, frequency, hematuria. Denies diarrhea. Has been struggling often on with constipation as her opioid analgesics doses have been increasing. Denies upper respiratory tract symptoms. No rashes or wounds. Over the recent past the fentanyl patch dose was increased to 25 micrograms/hour. As of today her oral oxycodone dose was increased to 10-15 mg q.4 hours p.r.n. for pain. When discharged here about a month ago she was on scheduled acetaminophen. Unfortunately she stopped that and has been taking it only intermittently over the last few weeks. Review of Systems Status of ROS: Reports: 10 or more systems reviewed and unremarkable except as noted in History and below Narrative: Has not had fevers, rigors, diaphoresis until she presented to the emergency department today. She did realize she had a fever. Temperature on presentation is 103.2? F. Aside from the pain she has been struggling with, she has no other localizing symptoms. Denies headache, focal motor neurologic deficits, myalgias or arthralgias, aside from knee discomfort that just started today. [facility] Medical History (Updated 09/11/22 @ 23:41 by Osmel Henderson MD) Neoplasm related pain ?G89.3 - Neoplasm related pain (acute) (chronic) (ICD-10) Pathologic fracture ?M84.40XA - Pathological fracture, unspecified site, initial encounter for fracture (ICD-10) Metastatic cancer ?C79.9 - Secondary malignant neoplasm of unspecified site (ICD-10) Back pain ?M54.9 - Dorsalgia, unspecified (ICD-10) COVID-19 virus infection ?U07.1 - COVID-19 (ICD-10) Essential hypertension ?I10 - Essential (primary) hypertension (ICD-10) Malignant neoplasm metastatic to lung ?C78.00 - Secondary malignant neoplasm of unspecified lung (ICD-10) 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 Nonsmoker, no ETOH. Full Code What is your current living situation?: I presently have a place to live Problems where you live: no known problems Problems where you live details: N/A In the past 12 months, utilities in danger of being shut off: no In the past 12 mos, have been you worried that your food would run out before you had money to buy more?: never true In the past 12 mos, the food you bought just didn't last and you didn't have money to buy more?: never true Highest level of school completed/degree received: Associate degree: academic program Smoking Status: Former smoker Do you use any of these nicotine containing products: None How often do you have a drink containing alcohol: never How often do you have six or more drinks on one occasion: Never AUDIT-C Alcohol total score: 0 Non-prescribed substance use: marijuana (any form) Caffeine: Yes (30 FL OZ ICE COFFEE DAILY) How often does anyone, including family, friends and others, physically hurt you: never How often does anyone, including family, friends and others, insult or talk down to you: rarely How often does anyone, including family, friends and others, threaten you with harm: never How often does anyone, including family, friends and others, scream or curse at you: never Meds Home Medications and Allergies Home Medications Medication Instructions Recorded Confirmed Type apixaban 5 mg tablet (Eliquis) 5 mg PO BID 08/17/22 08/17/22 History cholecalciferol (vitamin D3) 50 50 mcg PO DAILY 08/17/22 08/17/22 History mcg (2,000 unit) tablet (Vitamin D3) citalopram 40 mg tablet 40 mg PO DAILY 08/17/22 08/17/22 History lidocaine-prilocaine 2.5 %-2.5 % 1 applic topical PRN 08/17/22 History topical cream ondansetron HCl 8 mg tablet 8 mg PO Q8H PRN nausea 08/17/22 08/17/22 History zinc sulfate PO DAILY 08/17/22 History Home Medication Comments: Additional medications include: Fentanyl 25 micrograms/hour transdermal patch Oxycodone previously 5 mg q.4 hours p.r.n. and today dose increased to 10-15 mg q.4 hours p.r.n. Senna-S 2 tabs twice daily, dose increased today, previously 1 tab twice daily Allergies Allergy/AdvReac Type Severity Reaction Status Date / Time fluconazole Allergy Mild nasuea Verified 07/25/22 08:20 Exam Narrative: Exam Narrative: Examine her in the emergency department. She is laying on the exam table, appears comfortable. Has a wet washcloth on her forehead. Vision and hearing are grossly normal. Alert and oriented to self, place, time, situation. Friendly, articulate, cooperative. Mood and affect are congruent. External auditory canals and tympanic membranes are normal. Midline nasal septum. Dry buccal mucosa. Dentition in fair repair. No icterus or conjunctival injection. Pupils are equally round and reactive to light and accommodation. Extraocular muscles are intact. Neck is supple. No nuchal rigidity. Midline trachea. No JVD or hepatojugular reflux. No carotid bruits. No adenopathy in the head and neck region. Lungs are actually clear to auscultation without wheezing, rhonchi, or rales. Chest wall excursions are full. No CVA tenderness. Does have discomfort to palpation over the spine particular lower thoracic upper lumbar region. This is not new. Heart tones with regular rhythm, normal S1-S2. Tachycardia. No murmur, gallop, or rub. PMI not laterally displaced. Abdomen with active bowel sounds, soft, nontender. No rebound or guarding. Extremities without edema. Knees without evidence of inflammation, redness, warmth. Full range of motion. Palpable pulses upper and lower extremities. No focal motor neurologic deficits. Cranial nerves 3-12 grossly normal. No tremor, asterixis, or ataxia. Skin is warm, dry, intact. No jaundice, rashes, petechiae, or cyanosis. Const: Vital Signs, click to edit/add: Vital Signs - 24 hr 09/11/22 18:39 09/11/22 19:05 09/11/22 20:30 Temperature 103.2 F H Pulse Rate [Right Pulse Oximeter] 131 H 124 H Respiratory Rate 20 16 18 Blood Pressure [Le ft Arm] 116/70 Blood Pressure [Ri ght Upper Arm] 129/77 121/72 Pulse Oximetry 93 92 93 Oxygen Delivery In thod Room Air Room Air Room Air Oxygen Flow Rate 09/11/22 20:42 09/11/22 21:00 09/11/22 21:30 Temperature Pulse Rate [Right Pulse Oximeter] 126 H 124 H Respiratory Rate 16 18 Blood Pressure [Le ft Arm] Blood Pressure [Ri ght Upper Arm] 116/70 134/59 L Pulse Oximetry 95 88 97 Oxygen Delivery In thod Room Air Nasal Can nula Room Air Room Air Oxygen Flow Rate 2 09/11/22 22:00 09/11/22 22:05 09/11/22 22:30 Temperature Pulse Rate [Right Pulse Oximeter] 118 H 111 H 103 H Respiratory Rate 18 16 16 Blood Pressure [Le ft Arm] Blood Pressure [Ri ght Upper Arm] 125/50 L 117/57 L 118/38 L Pulse Oximetry 97 98 98 Oxygen Delivery In thod Room Air Room Air Nasal Cannula Oxygen Flow Rate 09/11/22 23:00 Temperature Pulse Rate [Right Pulse Oximeter] 102 H Respiratory Rate 14 Blood Pressure [Le ft Arm] Blood Pressure [Ri ght Upper Arm] 132/58 L Pulse Oximetry 98 Oxygen Delivery Me thod Nasal Cannula Oxygen Flow Rate Hospitalist - H&P: Result Labs Labs: Short CBC 09/11/22 Range/Units 19:45 WBC 6.40 (4.50-11.00) K/uL Hgb 11.1 L (12.0-16.0) gm/dL Hct 33.9 (33.0-51.0) % Plt Count 205 (140-440) K/uL BMP 09/11/22 19:45 Sodium 130 L Potassium 3.5 L Chloride 97 Carbon Dioxide 29 BUN 17 Creatinine 0.5 Glucose 125 H Calcium 8.5 Liver Function 09/11/22 Range/Units 19:45 Total Bilirubin 0.7 (0.1-1.5) mg/dL Direct Bilirubin 0.1 (0.0-0.5) mg/dL AST 52 H (12-35) U/L ALT 88 H (4-35) U/L Alkaline Phosphatase 140 (40-150) U/L Albumin 3.5 (3.3-5.0) g/dL Urine 09/11/22 Range/Units 19:25 Urine Color Yellow (Yellow) Urine Appearance Clear (Clear) Urine pH 6.0 (5.0-8.5) Ur Specific [place] 1.025 (1.000-1.030) Urine Protein Negative (Negative) Urine Glucose (UA) Negative (Negative) ECG ECG interpretation date: 09/11/22 ECG interpretation time: 22:30 Prior ECG tracings: not available for review Interpretation: Sinus tachycardia without ischemic changes. Imaging Chest x-ray: Attestation: I have reviewed the pertinent imaging results. Radiologist's impression: IMPRESSION: Numerous bilateral moderately dense round metastases. Allowing for differences in technique, metastases appear increased from comparison. Pulmonary vascularity is normal. No definite new pneumonia. Thoracic spine x-ray: Attestation: I have reviewed the pertinent imaging results. Radiologist's impression: FINDINGS/IMPRESSION: No acute fracture. No listhesis. Stable sclerosis involving the T5, T7, T11, and T12 vertebral bodies, representing metastasis, potentially treated. Stable chronic height loss of the T12 vertebral body. No prevertebral soft tissue hematoma or swelling. No soft tissue abnormality is identified. Mild generalized disc space narrowing. Redemonstration of diffuse pulmonary metastases. lumbar spine x-ray: Attestation: I have reviewed the pertinent imaging results. Radiologist's impression: FINDINGS/IMPRESSION: No acute fracture. No listhesis. Scattered areas of bony demineralization. L3 vertebral body hemangioma. Stable sclerotic focus along the superior endplate of S1. No prevertebral soft tissue hematoma or swelling. No soft tissue abnormality is identified. Mild generalized disc space narrowing. Femur x-ray: Attestation: I have reviewed the pertinent imaging results. Radiologist's impression: IMPRESSION: Subacute appearing fracture of the parasymphyseal superior and inferior pubic rami. Prominent lucency in the superior ramus likely metastatic disease. No femoral fracture. Anatomic alignment with no degenerative change at the hip or knee. CT scan-abdomen and pelvis: Attestation: I have reviewed the pertinent imaging results. Radiologist's impression: IMPRESSION: 1. Worsening disease as characterized by increasing size and number of numerous pulmonary metastases throughout the lung bases. 2. Stable erosion/metastasis involving the left pubic rami. Stable sclerotic metastases throughout the skeleton. Assessment and Plan Assessment and plan (1) Neoplasm related pain: Problem comment: Bone pain seemingly not adequately modified at this time. Status: Acute Assessment and Plan: 1. Increased fentanyl transdermal patch dose from 25 micrograms/hour to 50 micrograms/hour. 2. Add tizanidine 2 mg at bedtime as adjuvant analgesic. 3. Restart schedule acetaminophen 4 times daily 650 mg with each dose as adjuvant analgesic. 4. And hydroxyzine 25 mg q.4 hours p.r.n. as adjuvant analgesic. 5. Consider switching from citalopram to duloxetine, which has additional analgesic properties. 6. Consider adding glucocorticoids such as dexamethasone 2 mg b.i.d. 7. Consider initiation of osteoclast inhibitor such as pamidronate or zoledronic acid for the bone pain as well. 8. Continue dialogue with his oncologist at the [facility], [facility], as warranted. (2) Leiomyosarcoma of uterus: Problem comment: - primarily managed through [facility]. Started gemcitabine 09/11/2022. - stage iv with mets outside the abdomen, including lungs and spine. On 09/11/2022 patient expresses desire to continue with full oncology treatment efforts as much as possible. Status: Acute Assessment and Plan: Chemotherapy precautions. (3) Malignant neoplasm metastatic to lung: Problem comment: - 2020, s/p thoracotomy, wedge resection, cryoablation Status: Acute (4) Fever: Problem comment: No apparent infection on assessment. Reviewed with [facility] oncologist, who agreed with urine and blood cultures, and recommended that since no obvious source of infection is found that we not initiate antibiotics empirically. Oncologist suggested that this fever may well be from the chemotherapy. Differential diagnosis for fever includes infection with source not yet identified, iatrogenic related to chemotherapy, neoplasm related, and so forth. Status: Acute Assessment and Plan: 1. IV fluids given in the emergency department, 2 L of normal saline. 2. Initiate scheduled acetaminophen. 3. Blood cultures and urine cultures obtained. Various radiographs are negative. Skin exam still negative. Continue to monitor knee in the event it becomes apparent that it appears to be septic. Plan 1. Reviewed above with patient, , and daughter. Answered their questions. 2. Patient family agreeable with this above stated plans and recommendations.
[2022-09-12] VITALS (7 sets, daily range): BP systolic 115–132; BP diastolic 53–69; PULSE 88–103; RESP 16–18; TEMP 36.8–37.2; O2SAT 91–96; BMI 35.6
[2022-09-12] MEDS: TIZANIDINE HCL 4 MG TABLET 2 MG PO ×2 (00:18→21:12)
[2022-09-12] MEDS: fentaNYL 50 MCG/HR PATCH 1 PATCH TRANSDERMA (00:22)
[2022-09-12] MEDS: HEPARIN 500 UNIT/5 ML SYRINGE IVF ×3 (04:58→12:16)
[2022-09-12 05:11] LABS: HCO3 VBG 30 mmol/L (21-28); Lactate* 0.6 mmol/L (0.5-1.9); PCO2 VBG 45 mmHG (40-50); PO2 VBG 53.6 mmHG (25-47); pH VBG 7.437 (7.32-7.43)
[2022-09-12 05:14] LABS: Eosinophils Percent Auto 0.7 % (0.0-7.0); Hematocrit 28.6 % (33.0-51.0); Hemoglobin* 9.2 gm/dL (12.0-16.0); Immature Granulocytes Pct Auto 0.2 %; Lymphocytes Percent Auto 9.2 % (20-44); Mean Corpuscular HGB Conc 32 gm/dL (32-36); Mean Corpuscular Hemoglobin 31 pg (26-34); Mean Corpuscular Volume 95 fL (80-100); Monocytes Percent Auto 6.8 % (0.0-11.0); Neutrophils Percent Auto 83.1 % (42.0-72.0); Platelet Count* 155 K/uL (140-440); Red Blood Count 3.01 m/uL (4.00-5.20); Slide Review Reflex No; White Blood Count* 4.13 K/uL (4.50-11.00)
[2022-09-12 05:26] LABS: Albumin* 2.7 g/dL (3.3-5.0); Chloride* 101 mmol/L (96-114); Sodium* 133 mmol/L (135-149)
[2022-09-12 05:27] LABS: Potassium* 3.5 mmol/L (3.6-5.1)
[2022-09-12 05:29] LABS: Alanine Aminotransferase* 63 U/L (4-35); Alkaline Phosphatase* 102 U/L (40-150); Aspartate Amino Transferase* 38 U/L (12-35); Bilirubin Total* 0.6 mg/dL (0.1-1.5); Blood Urea Nitrogen* 14 mg/dL (7-30); Carbon Dioxide* 31 mmol/L (20-32); Creatinine* 0.4 mg/dL (0.5-1.5); Est. Creatinine Clearance* 155.77; Estimated Glomerular Filt Rate 120 ml/min; Total Protein* 5.3 g/dL (6.0-8.3)
[2022-09-12 05:30] LABS: Calcium* 7.9 mg/dL (8.4-10.6); Glucose* 116 mg/dL (60-115); Uric Acid* 2.9 mg/dL (2.2-8.4)
[2022-09-12 05:44] LABS: C Reactive Protein* 14.6 mg/dL (0.5-1.0)
--- NOTE | 2022-09-12 07:15 | PC.NURSE ---
pt to floor at 2310. Pleasant and cooperative. Pt states pain is tolerable, ice placed on lower back to assist in pain mgmt. VSS. Afebrile. Port was accessed in ED. Order was obtained via [facility] Hospitalist to Heparin Lock port. Pts medications are in controlled substance drawer, internal carver and Behavioral Analyst counted Oxy tabs and listed amount on belongings form. Pts other medications are in the same sealed bag in the controlled substance drawer. Upon arrival to the floor, pt had fentanyl patch on her left shoulder ? Behavioral Analyst removed this patch & disposed of it (witnessed by Juju Curran RN) and placed new fentanyl patch to right shoulder. Chemo precautions in place. ?
[2022-09-12] MEDS: ONDANSETRON ODT 4 MG TAB 8 MG PO ×2 (09:08→17:18)
[2022-09-12] MEDS: HYDROmorphone 0.5 mg/0.5 ml inj IVP ×4 (09:14→21:13)
[2022-09-12] MEDS: SODIUM CHLORIDE 0.9 % (FLUSH) 10 ML SYRINGE 5 ML IVF (09:15)
[2022-09-12] MEDS: SODIUM CHLORIDE 0.9 % (FLUSH) 10 ML SYRINGE IVF ×2 (09:15→12:17)
[2022-09-12] MEDS: CITALOPRAM HYDROBROMIDE 20 MG TABLET 40 MG PO (10:13)
[2022-09-12] MEDS: APIXABAN 5 MG TABLET PO ×2 (10:13→21:13)
[2022-09-12] MEDS: ACETAMINOPHEN 325 MG TABLET 650 MG PO ×3 (10:13→21:12)
[2022-09-12] MEDS: SENNOSIDES/DOCUSATE TABLET 2 TAB PO ×2 (10:13→21:11)
--- NOTE | 2022-09-12 11:39 | REH.PT ---
PT/OT eval cx. Not needed at this time. MD in agreement.
--- NOTE | 2022-09-12 12:41 | P.IMPN_ITS ---
Progress Note: A&P Assessment and plan (1) Neoplasm related pain: Problem details: Bone pain seemingly not adequately modified at this time. Increasing fentanyl to 50mcg Scheduled Tylenol Scheduled Celebrex Schedule tizanidine P.r.n. hydroxyzine, Oxy Status: Acute (2) Leiomyosarcoma of uterus: Problem details: - primarily managed through [facility]. Started gemcitabine 09/11/2022. - stage iv with mets outside the abdomen, including lungs and spine. On 09/11/2022 patient expresses desire to continue with full oncology treatment efforts as much as possible. Status: Acute (3) Malignant neoplasm metastatic to lung: Problem details: - 2019, s/p thoracotomy, wedge resection, cryoablation Status: Acute (4) Fever: Problem details: (resolved) No apparent infection on assessment. Reviewed with [facility] oncologist, who agreed with urine and blood cultures, and recommended that since no obvious source of infection is found that we not initiate antibiotics empirically. Oncologist suggested that this fever may well be from the chemotherapy. Differential diagnosis for fever includes infection with source not yet identified, iatrogenic related to chemotherapy, neoplasm related, and so forth. Status: Acute Subjective Date Seen: 09/12/22 Interval history: Daily Progress Note - Hospital Medicine Day #: 2 CC: pain crisis, bony mets from uterine ca OVERNIGHT UPDATES FROM STAFF & MED, LAB, IMAGING UPDATES Still having significant nausea and vomiting. Pain is better. She has pending palliative care and pain appointments with the [facility]. CBC reflects likely hemodilution related to fluids. Hemoglobin is down to 9.2. However she did receive her new chemotherapy agent yesterday as well. Mildly leukopenic 83% of 4130. PH 7.5 Sodium is up to 133. Potassium is about the same at 3.5. CRP is up 14.6, unclear etiology. Inflammation from chemo? Objective: Tired appearing Vitals: No further fever. Tachycardic. see above Lungs: Clear. Cardiac: S1S2. Disposition/Potential discharge - Likely to return to previous living situation. Total time is 35 minutes with greater than 50% spent in counseling and coordination of care. Exam Const: Vital Signs, click to edit/add: Vital Signs - 24 hr 09/11/22 18:39 09/11/22 19:05 09/11/22 20:30 Temperature 103.2 F H Pulse Rate [Pulse Oximeter] Pulse Rate [Right Pulse Oximeter] 131 H 124 H Respiratory Rate 20 16 18 Blood Pressure [Le ft Arm] 116/70 Blood Pressure [Ri ght Upper Arm] 129/77 121/72 Pulse Oximetry 93 92 93 Oxygen Delivery Me thod Room Air Room Air Room Air Oxygen Flow Rate 09/11/22 20:42 09/11/22 21:00 09/11/22 21:30 Temperature Pulse Rate [Pulse Oximeter] Pulse Rate [Right Pulse Oximeter] 126 H 124 H Respiratory Rate 16 18 Blood Pressure [Le ft Arm] Blood Pressure [Ri ght Upper Arm] 116/70 134/59 L Pulse Oximetry 95 88 97 Oxygen Delivery Me thod Room Air Nasal Can nula Room Air Room Air Oxygen Flow Rate 2 09/11/22 22:00 09/11/22 22:05 09/11/22 22:30 Temperature Pulse Rate [Pulse Oximeter] Pulse Rate [Right Pulse Oximeter] 118 H 111 H 103 H Respiratory Rate 18 16 16 Blood Pressure [Le ft Arm] Blood Pressure [Ri ght Upper Arm] 125/50 L 117/57 L 118/38 L Pulse Oximetry 97 98 98 Oxygen Delivery Me thod Room Air Room Air Nasal Cannula Oxygen Flow Rate 09/11/22 23:00 09/11/22 23:10 09/11/22 23:10 Temperature 98.3 F Pulse Rate [Pulse Oximeter] 99 Pulse Rate [Right Pulse Oximeter] 102 H Respiratory Rate 14 14 14 Blood Pressure [Le ft Arm] 118/52 L Blood Pressure [Ri ght Upper Arm] 132/58 L Pulse Oximetry 98 94 94 Oxygen Delivery Me thod Nasal Cannula Room Air Room Air Oxygen Flow Rate 09/12/22 03:00 09/12/22 08:09 09/12/22 08:40 Temperature 98.7 F 98.9 F Pulse Rate [Pulse Oximeter] 93 103 H Pulse Rate [Right Pulse Oximeter] Respiratory Rate 16 18 Blood Pressure [Le ft Arm] 123/61 132/67 Blood Pressure [Ri ght Upper Arm] Pulse Oximetry 96 94 94 Oxygen Delivery Me thod Room Air Room Air Room Air Oxygen Flow Rate 09/12/22 12:26 Temperature 98.5 F Pulse Rate [Pulse Oximeter] 89 Pulse Rate [Right Pulse Oximeter] Respiratory Rate 16 Blood Pressure [Le ft Arm] 123/65 Blood Pressure [Ri ght Upper Arm] Pulse Oximetry 91 Oxygen Delivery Me thod Room Air Oxygen Flow Rate Labs Labs: Laboratory Results - last 24 hr 09/11/22 09/11/22 09/12/22 19:25 19:45 04:00 WBC 6.40 4.13 L RBC 3.59 L 3.01 L Hgb 11.1 L 9.2 L Hct 33.9 28.6 L MCV 94 95 MCH 31 31 MCHC 33 32 RDW Coeff of Mandy 13.0 13.0 Plt Count 205 155 Neut % (Auto) 87.2 H 83.1 H Lymph % (Auto) 5.2 L 9.2 L [place] % (Auto) 6.7 6.8 Eos % (Auto) 0.2 0.7 Baso % (Auto) 0.2 0.0 Neut # (Auto) 5.60 3.40 Lymph # (Auto) 0.30 L 0.40 L [place] # (Auto) 0.40 0.30 Eos # (Auto) 0.01 0.00 Baso # (Auto) 0.01 0.00 Abs Immat Gran (auto) 0.03 0.00 Imm/Tot Granulo (auto) 0.5 0.2 VBG pH VBG pCO2 VBG pO2 VBG HCO3 Sodium 130 L Potassium 3.5 L Chloride 97 Carbon Dioxide 29 BUN 17 Creatinine 0.5 Estimated Creat Clear 124.61 Estimated GFR 113 Glucose 125 H Lactate 0.8 Uric Acid Calcium 8.5 Phosphorus Magnesium 1.7 Total Bilirubin 0.7 Direct Bilirubin 0.1 AST 52 H ALT 88 H Alkaline Phosphatase 140 C-Reactive Protein Total Protein 6.5 Albumin 3.5 Lipase 31 Urine Color Yellow Urine Appearance Clear Urine pH 6.0 Ur Specific [place] 1.025 Urine Protein Negative Urine Glucose (UA) Negative Urine Ketones Negative Urine Blood 1+ A Urine Nitrite Negative Urine Bilirubin Negative Urine Urobilinogen 1.0 Ur Leukocyte Esterase Negative Urine RBC 0-2 Urine WBC 2-5 Ur Squamous Epith Cells Few Urine Bacteria None SARS-CoV-2 (PCR) Negative SARS-CoV-2 Influenza Type A (PCR) Negative PCR FLU A Influenza Type B (PCR) Negative PCR FLU B RSV (PCR) Negative PCR RSV 09/12/22 05:09 WBC RBC Hgb Hct MCV MCH MCHC RDW Coeff of Mandy Plt Count Neut % (Auto) Lymph % (Auto) [place] % (Auto) Eos % (Auto) Baso % (Auto) Neut # (Auto) Lymph # (Auto) [place] # (Auto) Eos # (Auto) Baso # (Auto) Abs Immat Gran (auto) Imm/Tot Granulo (auto) VBG pH 7.437 H VBG pCO2 45 VBG pO2 53.6 H VBG HCO3 30 H Sodium 133 L Potassium 3.5 L Chloride 101 Carbon Dioxide 31 BUN 14 Creatinine 0.4 L Estimated Creat Clear 155.77 Estimated GFR 120 Glucose 116 H Lactate 0.6 Uric Acid 2.9 Calcium 7.9 L Phosphorus 4.0 Magnesium 2.0 Total Bilirubin 0.6 Direct Bilirubin AST 38 H ALT 63 H Alkaline Phosphatase 102 C-Reactive Protein 14.6 H Total Protein 5.3 L Albumin 2.7 L Lipase Urine Color Urine Appearance Urine pH Ur Specific [place] Urine Protein Urine Glucose (UA) Urine Ketones Urine Blood Urine Nitrite Urine Bilirubin Urine Urobilinogen Ur Leukocyte Esterase Urine RBC Urine WBC Ur Squamous Epith Cells Urine Bacteria SARS-CoV-2 (PCR) Influenza Type A (PCR) Influenza Type B (PCR) RSV (PCR)
[2022-09-12] MEDS: PROCHLORPERAZINE 5 MG/ML VIAL 10 MG IV (13:10)
[2022-09-12] MEDS: 0.9 % SODIUM CHLORIDE 1000 ml 1,000 ML 35 ML IV (13:12)
--- NOTE | 2022-09-12 18:50 | PC.NURSE ---
Addendum entered by Sol Almaraz RN 09/12/22 19:23: VSS. Tolerated lunch and dinner w/ minimal nausea and no more emesis. Up ad chente w/ cane, voiding good. Original Note: Pt alert and orientated, great attitude. Pt has uterine cancer with metastasis to lungs and pelvis. Chronic pain from past spinal fractures. Fetynal 50mg patch in place on R shoulder. R chest port present, TKO running at 35 ml/hr verbal order per Dr Campos due to IV medications. IV Dilaudid given last at 1909 for 06/04 pain. Pt had an episode of 300 cc of yellow emesis this AM after a few bites of breakfast. PRN zofran given 2x and Compazine given 1x. No fever this shift. in with her.
[2022-09-13] MEDS: HYDROmorphone 0.5 mg/0.5 ml inj IVP ×4 (00:02→08:40)
[2022-09-13] MEDS: PROCHLORPERAZINE 5 MG/ML VIAL 10 MG IV ×2 (00:02→06:24)
[2022-09-13 03:00] VITALS: BP 135/78; PULSE 103; RESP 16; TEMP 37.8; O2SAT 95
[2022-09-13] MEDS: ONDANSETRON ODT 4 MG TAB 8 MG PO ×2 (03:35→11:46)
[2022-09-13] MEDS: ACETAMINOPHEN 325 MG TABLET 650 MG PO ×2 (06:23→08:39)
[2022-09-13 07:00] VITALS: O2SAT 96
--- NOTE | 2022-09-13 07:19 | PC.NURSE ---
[id number]: Patient had an uneventful night. Patient temp increased to 100.2F orally this am and HR increased to 102. Patient was given PRN tylenol. Patient had no n/v overnight. Patient requested prn Compazine and Zofran during available hours. Patient independent in room with cane. Patient continues to complain of left knee pain and left chest wall pain. Patient pain controlled with prn Dilaudid but patient requests to transition to po Dilaudid today. Patient with poor appetite and eats ice freq.
[2022-09-13 07:38] LABS: HCO3 VBG 29 mmol/L (21-28); PCO2 VBG 45 mmHG (40-50); PO2 VBG 39.2 mmHG (25-47); pH VBG 7.426 (7.32-7.43)
[2022-09-13 07:58] VITALS: BP 124/61; PULSE 104; RESP 16; O2SAT 91
[2022-09-13 08:00] LABS: Chloride* 104 mmol/L (96-114); Potassium* 3.8 mmol/L (3.6-5.1); Sodium* 135 mmol/L (135-149)
[2022-09-13 08:02] LABS: Hematocrit 28.8 % (33.0-51.0); Hemoglobin* 9.3 gm/dL (12.0-16.0); Mean Corpuscular HGB Conc 32 gm/dL (32-36); Mean Corpuscular Hemoglobin 31 pg (26-34); Mean Corpuscular Volume 96 fL (80-100); White Blood Count* 5.91 K/uL (4.50-11.00)
[2022-09-13 08:03] LABS: Creatinine* 0.4 mg/dL (0.5-1.5); Est. Creatinine Clearance* 155.77; Estimated Glomerular Filt Rate 120 ml/min
[2022-09-13 08:04] LABS: Blood Urea Nitrogen* 16 mg/dL (7-30); Calcium* 7.9 mg/dL (8.4-10.6); Carbon Dioxide* 31 mmol/L (20-32); Glucose* 120 mg/dL (60-115); Magnesium* 1.9 mg/dL (1.5-2.6)
[2022-09-13 08:18] LABS: Procalcitonin* 1.84 ng/mL (<0.50)
[2022-09-13] MEDS: CITALOPRAM HYDROBROMIDE 20 MG TABLET 40 MG PO (08:39)
[2022-09-13] MEDS: SENNOSIDES/DOCUSATE TABLET 2 TAB PO (08:39)
[2022-09-13] MEDS: APIXABAN 5 MG TABLET PO (08:39)
[2022-09-13 08:48] LABS: Platelet Count* 225 K/uL (140-440); Slide Review Reflex No
[2022-09-13] MEDS: PANTOPRAZOLE SODIUM 40 MG INJ IVP (10:25)
[2022-09-13] MEDS: HEPARIN 500 UNIT/5 ML SYRINGE IVF (10:34)
[2022-09-13] MEDS: HYDROmorphone 2 MG TABLET PO ×3 (10:34→16:21)
[2022-09-13 11:00] VITALS: BP 126/65; PULSE 93; RESP 18; TEMP 36.9; O2SAT 94
[2022-09-13] MEDS: LIDOCAINE 5% PATCH 1 PATCH TRANSDERMA (11:46)
--- NOTE | 2022-09-13 11:56 | PM.IMPN1 ---
Progress Note: A&P Assessment and plan (1) Neoplasm related pain: Problem details: Bone pain seemingly not adequately modified at this time. Increasing fentanyl to 50mcg Scheduled Tylenol Scheduled Celebrex Schedule tizanidine breakthru pain better with dilaudid than oxy. transition to oral dilaudid wean celexa and start cymbalta lidocaine patch to the medial left knee P.r.n. hydroxyzine, Oxy Status: Acute (2) Leiomyosarcoma of uterus: Problem details: - primarily managed through [facility]. Started gemcitabine 09/11/2022. - stage iv with mets outside the abdomen, including lungs and spine. On 09/11/2022 patient expresses desire to continue with full oncology treatment efforts as much as possible. Status: Acute (3) Malignant neoplasm metastatic to lung: Problem details: - 2019, s/p thoracotomy, wedge resection, cryoablation -PPI offered this am for GERD like sx Status: Acute (4) Fever: Problem details: (resolved) No neutropenic. No apparent infection on assessment. Reviewed with [facility] oncologist, who agreed with urine and blood cultures, and recommended that since no obvious source of infection is found that we not initiate antibiotics empirically. Oncologist suggested that this fever may well be from the chemotherapy. Differential diagnosis for fever includes infection with source not yet identified, iatrogenic related to chemotherapy, neoplasm related, and so forth. Status: Acute Subjective Date Seen: 09/13/22 Interval history: Daily Progress Note - Hospital Medicine Day #: 3 CC: pain crisis, bony mets from uterine ca OVERNIGHT UPDATES FROM STAFF & MED, LAB, IMAGING UPDATES Nausea is better. Pain is better. She has pending palliative care and pain appointments with the [facility]. PH, VBG normal. Electrolytes have normalized. CRP has elevated but procalcitonin has down trended. Objective: Tired appearing Vitals: No further fever (tmax 100.1) mildTachycardic. see above Lungs: Clear. Cardiac: S1S2. Disposition/Potential discharge - Likely to return to previous living situation. Total time is 35 minutes with greater than 50% spent in counseling and coordination of care. Exam Const: Vital Signs, click to edit/add: Vital Signs - 24 hr 09/12/22 12:26 09/12/22 15:00 09/12/22 15:59 Temperature 98.5 F 98.3 F Pulse Rate [Pulse Oximeter] 89 88 Respiratory Rate 16 16 Blood Pressure [Le ft Arm] 123/65 115/53 L Blood Pressure [Ri ght Arm] Pulse Oximetry 91 93 Oxygen Delivery Me thod Room Air Room Air Room Air 09/12/22 19:00 09/12/22 23:00 09/12/22 23:00 Temperature 98.7 F Pulse Rate [Pulse Oximeter] 91 91 Respiratory Rate 16 16 16 Blood Pressure [Le ft Arm] Blood Pressure [Ri ght Arm] 126/64 Pulse Oximetry 95 95 Oxygen Delivery Me thod Room Air Room Air 09/12/22 23:00 09/13/22 03:00 09/13/22 07:00 Temperature 98.9 F 100.1 F H Pulse Rate [Pulse Oximeter] 99 103 H Respiratory Rate 16 16 Blood Pressure [Le ft Arm] Blood Pressure [Ri ght Arm] 122/69 135/78 Pulse Oximetry 95 95 96 Oxygen Delivery Me thod Room Air Room Air Room Air 09/13/22 07:58 Temperature Pulse Rate [Pulse Oximeter] 104 H Respiratory Rate 16 Blood Pressure [Le ft Arm] Blood Pressure [Ri ght Arm] 124/61 Pulse Oximetry 91 Oxygen Delivery Me thod Room Air Labs Labs: Laboratory Results - last 24 hr 09/12/22 09/12/22 09/13/22 05:05 05:09 07:00 WBC 5.91 RBC 3.00 L Hgb 9.3 L Hct 28.8 L MCV 96 MCH 31 MCHC 32 Plt Count 225 VBG pH 7.426 VBG pCO2 45 VBG pO2 39.2 VBG HCO3 29 H Sodium 135 Potassium 3.8 Chloride 104 Carbon Dioxide 31 BUN 16 Creatinine 0.4 L Estimated Creat Clear 155.77 Estimated GFR 120 Glucose 120 H Calcium 7.9 L Ionized Calcium Rodo 1.10 L Magnesium 1.9 C-Reactive Protein 21.0 H Procalcitonin 3.00 H 1.84 H Lab Acknowledgement Test Added
[2022-09-13 13:18] LABS: Appearance Urine Clear (Clear); Bilirubin Urine 1+ (Negative); Blood Urine 1+ (Negative); Color Urine Red (Yellow); Glucose Urine Trace (Negative); Ketones Urine Trace (Negative); Leukocyte Esterase Urine Negative (Negative); Nitrite Urine Negative (Negative); Protein Urine 1+ (Negative); Specific Gravity Urine 1.025 (1.000-1.030); pH Urine 6.5 (5.0-8.5)
[2022-09-13 13:31] LABS: Mucus Urine Few; Squamous Epithelial Cell Urine Moderate (None-Few); WBC Urine 0-2 (0-5)
--- NOTE | 2022-09-13 15:00 | P.DS_ITS ---
DS: Providers Provider Date Seen: 09/13/22 Date of admission: 09/11/22 23:03 Primary care physician: Epi Stinson MD Admitting Clinician: Osmel Henderson MD Consults: 09/11/22 23:35 Consult to Nutrition [CONS] Routine Comment: Reason for consult:: Miscellaneous Attending Physician on discharge: Lamar Campos MD [place] Hospitalist Date of Discharge: 09/13/22 DS: Diagnosis Discharge Diagnosis (1) Neoplasm related pain: Status: Acute Problem details: Bone pain seemingly not adequately modified at this time. Increasing fentanyl to 50mcg Scheduled Tylenol Scheduled Celebrex Schedule tizanidine breakthru pain better with dilaudid than oxy. transition to oral dilaudid wean celexa and start cymbalta lidocaine patch to the medial left knee P.r.n. hydroxyzine (2) Leiomyosarcoma of uterus: Status: Acute Problem details: - primarily managed through [facility]. Started gemcitabine 09/11/2022. - stage iv with mets outside the abdomen, including lungs and spine. On 023 patient expresses desire to continue with full oncology treatment efforts as much as possible. (3) Malignant neoplasm metastatic to lung: Status: Acute Problem details: - 2019, s/p thoracotomy, wedge resection, cryoablation -PPI offered this am for GERD like sx (4) Fever: Status: Acute Problem details: (resolved) No neutropenic. No apparent infection on assessment. Reviewed with [facility] oncologist, who agreed with urine and blood cultures, and recommended that since no obvious source of infection is found that we not initiate antibiotics empirically. Oncologist suggested that this fever may well be from the chemotherapy. Differential diagnosis for fever includes infection with source not yet identified, iatrogenic related to chemotherapy, neoplasm related, and so forth. (5) Pathologic fracture: Status: Acute Problem details: ongoing management thru [facility] DS: Summary Hospital Course Hospital Course: HOSPITALIST DISCHARGE SUMMARY ATTENDING PHYSICIAN: Lamar Campos MD FINAL DIAGNOSIS: Pain crisis, secondary to metastatic uterine cancer Bone metastasis Dehydration HOSPITAL FOLLOWUP ISSUES: Palliative care Pain management Oncology REFERRALS WHILE ADMITTED: None REFERRALS AFTER DISCHARGE: [facility] multi disciplinary care team BRIEF HOSPITAL COURSE: With 52-year-old female who unfortunately has a diagnosis of advanced metastatic uterine leiomyosarcoma. She is followed by the [facility]. She presented with an acute pain crisis. Metastasis to her lungs vertebral column. She has pathologic fractures in her pelvis. She has pain management and palliative care consult scheduled at [facility] but has not yet been able to see them. Her pain rapidly increased after her 1st dose of a new chemotherapy regimen this week. We admitted her for pain management. Our team: Increased her fentanyl from 25-50 mcg Duragesic Q 72 hours Scheduled her acetaminophen Continued her Celebrex Changed oral oxycodone to oral Dilaudid for breakthrough pain 2-4 mg Q 4-6 hours Added tizanidine 2 mg at night Weaned her from Celexa and started Cymbalta Added hydroxyzine p.r.n. as an analgesic enhancement Applied lidocaine patch were needed Her nausea resolved. Was much better controlled. She did spike 1 fever on admission and then a smaller temp elevation on the day of discharge. He is not neutropenic. We referred her this issue to her oncologist 2 felt this may represent a drug fever from her new chemotherapy. Her workup did not reflect infection she was not treated with antibiotics. SUBSTANTIVE NOTATIONS ON IMAGING, LAB, MICROBIOLOGY/PATHOLOGY STUDIES: Thoracic CT No acute fracture. No listhesis. Stable sclerosis involving the T5, T7, T11, and T12 vertebral bodies, representing metastasis, potentially treated. Stable chronic height loss of the T12 vertebral body. No prevertebral soft tissue hematoma or swelling. No soft tissue abnormality is identified. Mild generalized disc space narrowing. Redemonstration of diffuse pulmonary metastases. Lumbar CT No acute fracture. No listhesis. Scattered areas of bony demineralization. L3 vertebral body hemangioma. Stable sclerotic focus along the superior endplate of S1. No prevertebral soft tissue hematoma or swelling. No soft tissue abnormality is identified. Mild generalized disc space narrowing. Femur x-ray, left Subacute appearing fracture of the parasymphyseal superior and inferior pubic rami. Prominent lucency in the superior ramus likely metastatic disease. No femoral fracture. Anatomic alignment with no degenerative change at the hip or knee. Chest abdomen pelvis CT at admission 1. Worsening disease as characterized by increasing size and number of numerous pulmonary metastases throughout the lung bases. 2. Stable erosion/metastasis involving the left pubic rami. Stable sclerotic metastases throughout the skeleton. Blood cultures are negative to date at discharge as is urine culture DISCHARGE MEDICATIONS: See Reconciled list - SIGNIFICANT CHANGES: see above REVIEW OF SYSTEMS No new chest pain or dyspnea Pain controlled No voiding difficulties Tolerating diet challenge PHYSICAL EXAM: CONSTITUTIONAL: tired but smiling and requesting discharge VITAL SIGNS: see record. HEENT: Normocephalic, atraumatic. PERRL, EOMI, conjunctivae pink, no scleral icterus. Ears and nose externally normal. Pharynx normal. NECK: No JVD. No carotid bruit, no thyromegaly, no adenopathy. CHEST: Clear to auscultation bilaterally. HEART: S1 and S2 normal. Edema ABDOMEN: Soft, nontender. Normal bowel sounds. MUSCULOSKELETAL: No gross joint deformity or swelling. NEURO: Cranial nerves intact. Grossly intact. No asymmetric findings. SKIN: No rashes, petechiae, concerning changes PSYCHIATRIC: Mood euthymic. DISPOSITION: Home with and family Time spent on discharge 37 minutes. Time Spent with Patient Time attestation: Total time spent providing and/or coordinating discharge services: Exam Const: Vital Signs, click to edit/add: Vital Signs - 24 hr 09/12/22 15:59 09/12/22 19:00 09/12/22 23:00 Temperature 98.3 F 98.7 F Pulse Rate [Pulse Oximeter] 88 91 91 Respiratory Rate 16 16 16 Blood Pressure [Le ft Arm] 115/53 L Blood Pressure [Ri ght Arm] 126/64 Pulse Oximetry 93 95 Oxygen Delivery Me thod Room Air Room Air 09/12/22 23:00 09/12/22 23:00 09/13/22 03:00 Temperature 98.9 F 100.1 F H Pulse Rate [Pulse Oximeter] 99 103 H Respiratory Rate 16 16 16 Blood Pressure [Le ft Arm] Blood Pressure [Ri ght Arm] 122/69 135/78 Pulse Oximetry 95 95 95 Oxygen Delivery Me thod Room Air Room Air Room Air 09/13/22 07:00 09/13/22 07:58 09/13/22 11:00 Temperature 98.4 F Pulse Rate [Pulse Oximeter] 104 H 93 Respiratory Rate 16 18 Blood Pressure [Le ft Arm] Blood Pressure [Ri ght Arm] 124/61 126/65 Pulse Oximetry 96 91 94 Oxygen Delivery Me thod Room Air Room Air Room Air DS: Data Data Completed and Pending Labs on day of discharge: Labs from last 24 hours 09/13/22 09/13/22 12:56 07:00 WBC 5.91 RBC 3.00 L Hgb 9.3 L Hct 28.8 L MCV 96 MCH 31 MCHC 32 Plt Count 225 VBG pH 7.426 VBG pCO2 45 VBG pO2 39.2 VBG HCO3 29 H Sodium 135 Potassium 3.8 Chloride 104 Carbon Dioxide 31 BUN 16 Creatinine 0.4 L Estimated Creat Clear 155.77 Estimated GFR 120 Glucose 120 H Calcium 7.9 L Ionized Calcium Rodo 1.10 L Magnesium 1.9 C-Reactive Protein 21.0 H Procalcitonin 1.84 H Urine Color Red A Urine Appearance Clear Urine pH 6.5 Ur Specific [place] 1.025 Urine Protein 1+ A Urine Glucose (UA) Trace A Urine Ketones Trace A Urine Blood 1+ A Urine Nitrite Negative Urine Bilirubin 1+ A Urine Urobilinogen 4.0 A Ur Leukocyte Esterase Negative Urine RBC 2-5 A Urine WBC 0-2 Ur Squamous Epith Cells Moderate A Urine Bacteria None Urine Mucus Few A Preliminary micro results at discharge 09/13/22 09:35 Urine Culture - Preliminary Urine,Clean Catch Culture in Progress 09/11/22 20:15 Blood Culture - Preliminary Blood NO GROWTH AFTER 24 HOURS 09/11/22 19:45 Blood Culture - Preliminary Blood NO GROWTH AFTER 24 HOURS Discharge Plan Discharge Disposition: Home w/ Parent or Adult Date of Admission: 09/11/22 23:03 Attending Provider on Discharge: Lamar Campos Primary Care Provider: Epi Stinson Anticipated Discharge Date/Time: 09/13/22 14:00 Discharge Medications: New duloxetine 30 mg Capsule,Delayed Release(Dr/Ec) 30 mg PO HS Qty: 60 0RF Rx Instructions: may increase to 60mg at night in one week; after celexa is done tizanidine 4 mg Tablet 2 mg PO HS Qty: 30 0RF hydromorphone 2 mg Tablet 2 - 4 mg PO Q6H PRNQty: 120 0RF lidocaine [Lidoderm] 5 % Adhesive Patch,Medicated 1 patch transdermal DAILY Qty: 10 0RF omeprazole 20 mg Capsule,Delayed Release(Dr/Ec) 40 mg PO DAILY@0700 Qty: 30 0RF fentanyl 50 mcg/hr Patch 72 Hour 1 patch transdermal Q72H Qty: 10 0RF Continued ondansetron HCl 8 mg tablet 8 mg PO Q8H PRN (Reason: nausea) Eliquis 5 mg tablet 5 mg PO BID cholecalciferol (vitamin D3) [Vitamin D3] 50 mcg (2,000 unit) tablet 50 mcg PO DAILY lidocaine-prilocaine 2.5-2.5 % cream 1 applic topical DAILY PRN Rx Instructions: FOR PORT ACCESS celecoxib 100 mg capsule 100 mg PO BID Qty: 60 0RF sennosides [Natural Senna Laxative] 8.6 mg tablet 17.2 mg PO BID lorazepam 1 mg tablet 1 mg PO DAILY PRN (Reason: anxiety) prochlorperazine maleate 10 mg tablet 10 mg PO Q8H PRN Changed citalopram 40 mg tablet 20 mg PO DAILY Qty: 8 0RF Rx Instructions: take 1/2 tab for 7 days then stop acetaminophen 500 mg capsule 1,000 mg PO TID Qty: 90 0RF Discontinued fentanyl 25 mcg/hr patch 72 hour 1 patch topical Q3D oxycodone 5 mg tablet 10 - 15 mg PO Q4H PRN (Reason: pain) Discharge Orders: Discharge Order (Routine); Ordered 09/13/22 Ordered By: Lamar Campos Patient Education: Omeprazole (By mouth), Fentanyl (Absorbed through the skin), Hydromorphone (By mouth), Tizanidine (By mouth), Duloxetine (By mouth), Lidocaine (Into the skin) (Silvia), Fever in Adults (ED), Pain Management (DC) Additional Instructions: New pain management plan: Fentanyl duragesic up to 50mcg from 25mcg schedule the Tylenol and Celebrex like a vitamin (not as needed) Tizandine and Cymbalta at night (increase to 60mg at night after 1 week at 30mg) decrease celexa to 20mg for a week, then stop Lidocaine patch to the knee breakthru pain treat with oral dilaudid 2 or 4 mg every 6 hours Continue with [facility] pain and palliative care and oncology as previously arranged. Activity Level: Activity as Tolerated Discharge Diet: Regular Follow Up Appointments: Epi Stinson MD [Primary Care Provider] - Forms: [facility] Info Instructions
--- NOTE | 2022-09-13 17:54 | PC.NURSE ---
shift note: pt rating lt knee and pelvis pain 6-7/10. Pt medicated with lidoderm patch to lt knee with no relief. Pt also medicated with oxycodone with no relief. Dr. Campos changed pain medication to po dilaudid 2-4 mg. Pt received 2mg @ 1040 with relief of pain to 3/10. Pt received another 2 mg @ 1140 with pain 2/10. LS clr. Port flushed with saline and heparin prior to deaccess. Hr regular. BP WNL. pt afeb. Pt showered this a.m. Reviewed dc instructions and copies sent with pt at pa. Belongings reviewed and home meds returned to pt at pa.
== END 2022-09-13 16:25 | disposition home or self-care (01) ==
LOC: ED 21:58 → MEDSURG 23:03
PROVIDERS: Family Medicine; Admitting Provider Internal Medicine; Emergency Provider Family Medicine; PCP Family Medicine; Visit Provider Internal Medicine
DX: G89.3 Neoplasm related pain (acute) (chronic) (principal); C55 Malignant neoplasm of uterus, part unspecified; C78.00 Secondary malignant neoplasm of unspecified lung; C79.51 Secondary malignant neoplasm of bone; R74.01 Elevation of levels of liver transaminase levels; R79.82 Elevated C-reactive protein (CRP); D72.819 Decreased white blood cell count, unspecified; E87.6 Hypokalemia; E87.1 Hypo-osmolality and hyponatremia; K21.9 Gastro-esophageal reflux disease without esophagitis; R00.0 Tachycardia, unspecified; M54.9 Dorsalgia, unspecified; M54.2 Cervicalgia; R50.9 Fever, unspecified; D64.9 Anemia, unspecified; R10.2 Pelvic and perineal pain; M25.562 Pain in left knee; E86.0 Dehydration; R11.10 Vomiting, unspecified; R11.0 Nausea; M84.454A Pathological fracture, pelvis, initial encounter for fracture; M84.48XA Pathological fracture, other site, initial encounter for fracture; Z92.3 Personal history of irradiation; Z79.60 Long term (current) use of unspecified immunomodulators and immunosuppressants; Z79.899 Other long term (current) drug therapy; Z79.01 Long term (current) use of anticoagulants; Z98.890 Other specified postprocedural states; Z87.891 Personal history of nicotine dependence
CPT/HCPCS: 36415; 71045; 72128; 72131; 73552; 74177; 80048; 80053; 80076; 81001; 82330; 82803; 83605; 83690; 83735; 84100; 84145; 84550; 85025; 85027; 86140; 87040; 87086; 87631; 93005; 96361; 96374; 96375; 96376; 99285; A9270; C9113; G0378; J0780; J1170; J1642; J2405; J7030; Q9967

== ENCOUNTER 2022-10-19 17:18 | Outpatient (REF) | payer OTHER, SELFPAY ==
[2022-10-19 18:08] LABS: Basophils Percent Auto 0.1 % (0.0-3.0); Hematocrit 27.7 % (33.0-51.0); Hemoglobin* 8.7 gm/dL (12.0-16.0); Immature Granulocytes Pct Auto 15.9 %; Lymphocytes Percent Auto 2.6 % (20-44); Mean Corpuscular HGB Conc 31 gm/dL (32-36); Mean Corpuscular Hemoglobin 30 pg (26-34); Mean Corpuscular Volume 96 fL (80-100); Monocytes Percent Auto 0.4 % (0.0-11.0); Platelet Count* 113 K/uL (140-440); RDW Coefficient of Variation % 16.1 % (11.5-15.5); Red Blood Count 2.88 m/uL (4.00-5.20); White Blood Count* 21.34 K/uL (4.50-11.00)
[2022-10-19 18:09] LABS: Slide Review Reflex Yes
== END 2022-10-19 17:19 | disposition home or self-care (01) ==
LOC: NPINS 17:18
PROVIDERS: PCP Family Medicine
DX: R50.9 Fever, unspecified (principal)
CPT/HCPCS: 85025

== ENCOUNTER 2022-10-21 18:45 | Emergency (ER) | payer OTHER, SELFPAY ==
[2022-10-21 18:54] VITALS: BP 136/79; PULSE 123; RESP 21; TEMP 36.9; O2SAT 98; BMI 32.3
--- NOTE | 2022-10-21 20:10 | ED.FEVER ---
HPI - Fever General Time Seen by Provider: 20:36 Date Seen: 10/21/22 Chief Complaint: Fever Stated Complaint: Fever, Sores in throat, Cx patient Time Seen by Provider: 10/21/22 20:05 Source: patient and RN notes reviewed Mode of arrival: ambulatory Limitations: no limitations History of Present Illness HPI Narrative: Patient is a 52-year-old female that has been having low-grade fevers but did go up to 101.5 today. On Saturday she had chemotherapy, is on gemcitabine and docetaxel. She really is only been experiencing mouth sores and then a little soreness with swallowing like the sores or in her upper throat. She is still able to swallow. She did some baking soda water rinses. 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 She has had no respiratory symptoms, no diarrhea or new GI symptoms. Is experiencing some nausea from the chemotherapy. Really has had no other focal suggestive symptom for infection. She notes that her hemoglobin did go down to 8 with this last chemotherapy but when the hemoglobin was rechecked again, had already come up. She is on anticoagulant Eliquis. MD elicited complaint: fever Pertinent past history: immunosuppression (Due to chemotherapy) Related Data Home Medications Medication Instructions Recorded Confirmed apixaban 5 mg tablet (Eliquis) 5 mg PO BID 08/17/22 09/12/22 cholecalciferol (vitamin D3) 50 50 mcg PO DAILY 08/17/22 09/12/22 mcg (2,000 unit) tablet (Vitamin D3) lidocaine-prilocaine 2.5 %-2.5 % 1 applic topical DAILY PRN 08/17/22 09/12/22 topical cream ondansetron HCl 8 mg tablet 8 mg PO Q8H PRN nausea 08/17/22 09/12/22 lorazepam 1 mg tablet 1 mg PO DAILY PRN anxiety 09/12/22 09/12/22 prochlorperazine maleate 10 mg 10 mg PO Q8H PRN 09/12/22 09/12/22 tablet sennosides 8.6 mg tablet (Natural 17.2 mg PO BID 09/12/22 09/12/22 Senna Laxative) Previous Rx's Medication Instructions Recorded celecoxib 100 mg capsule 100 mg PO BID #60 caps 08/18/22 acetaminophen 500 mg capsule 1,000 mg (2 x 500 mg) PO TID #90 07/20/23 caps citalopram 40 mg tablet 20 mg (1/2 x 40 mg) PO DAILY #8 09/13/22 tabs duloxetine 30 mg capsule,delayed 30 mg PO HS #60 caps 09/13/22 release fentanyl 50 mcg/hr transdermal 1 patch transdermal Q72H #10 ea 09/13/22 patch hydromorphone 2 mg tablet 2 - 4 mg (1 - 2 x 2 mg) PO Q6H PRN 09/13/22 #120 tabs lidocaine 5 % topical patch 1 patch transdermal DAILY #10 ea 09/13/22 (Lidoderm) omeprazole 20 mg capsule,delayed 40 mg (2 x 20 mg) PO DAILY@0700 09/13/22 release #30 caps tizanidine 4 mg tablet 2 mg (1/2 x 4 mg) PO HS #30 tabs 09/13/22 Allergies Allergy/AdvReac Type Severity Reaction Status Date / Time fluconazole Allergy Mild nasuea Verified 10/21/22 19:01 piperacillin [From Zosyn] AdvReac Severe Rash Verified 10/21/22 19:01 tazobactam [From Zosyn] AdvReac Severe Rash Verified 10/21/22 19:01 Review of Systems Status of ROS Reports: 6 or more systems reviewed and unremarkable except as noted in History and below [facility] Medical History Pathologic fracture ?M84.40XA - Pathological fracture, unspecified site, initial encounter for fracture (ICD-10) Neoplasm related pain ?G89.3 - Neoplasm related pain (acute) (chronic) (ICD-10) Metastatic cancer ?C79.9 - Secondary malignant neoplasm of unspecified site (ICD-10) Back pain ?M54.9 - Dorsalgia, unspecified (ICD-10) COVID-19 virus infection ?U07.1 - COVID-19 (ICD-10) Essential hypertension ?I10 - Essential (primary) hypertension (ICD-10) Malignant neoplasm metastatic to lung ?C78.00 - Secondary malignant neoplasm of unspecified lung (ICD-10) 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 Nonsmoker, no ETOH. Full Code What is your current living situation?: I presently have a place to live Problems where you live: no known problems Problems where you live details: N/A In the past 12 months, utilities in danger of being shut off: no In the past 12 mos, have been you worried that your food would run out before you had money to buy more?: never true In the past 12 mos, the food you bought just didn't last and you didn't have money to buy more?: never true Highest level of school completed/degree received: Associate degree: academic program Smoking Status: Former smoker Do you use any of these nicotine containing products: None How often do you have a drink containing alcohol: never How often do you have six or more drinks on one occasion: Never AUDIT-C Alcohol total score: 0 Non-prescribed substance use: denies use Caffeine: Yes (Coffee) How often does anyone, including family, friends and others, physically hurt you: never How often does anyone, including family, friends and others, insult or talk down to you: never How often does anyone, including family, friends and others, threaten you with harm: never How often does anyone, including family, friends and others, scream or curse at you: never service: No Exam Const Vital Signs, click to edit/add: Vital Signs - 24 hr 10/21/22 18:54 Temperature 98.5 F Pulse Rate [Right Pulse Oximeter] 123 H Respiratory Rate 21 Blood Pressure [Right Upper Arm] 136/79 Pulse Oximetry 98 Oxygen Delivery Method Room Air Patient is a 52-year-old female that is alert interactive no apparent distress, speaking complete sentences no hoarseness. Sclera clear, conjugate gaze. Face atraumatic. Oropharynx on the posterior pharynx an on the soft palate has erythematous based lesions some have will ulcerations, some have whitish top that almost look fungal in nature. Neck is supple, no adenopathy. Lungs are clear, good air entry. CV fast but regular no murmur. Abdomen is soft, no rebound or guarding, no organomegaly. External skin without rash that is visualized. Documenting provider has reviewed patient's vital signs: yes Course Course Hospital Course: Reviewed with patient that the lesions in her oropharynx do have some concerns to me that they might have some fungal etiology. Certainly mucositis is concern with chemotherapies. We need to make sure that she is not neutropenic, find any possible source of infection. She really has no other etiology, it is only the mouth sores that are bothering her and she is still able swallow, she describes these is not that bad. Will get full complement of labs including blood cultures, check urine, check portable chest x-ray. Hopefully she is not neutropenic, she understands if she is that that changes things for us. We will guide therapy accordingly and at workup any further symptoms or direction of labs. Reevaluation(s) Time of Reevaluation #1: 23:02 Reevaluation #1: Have reviewed her chest x-ray resulted showing no acute pneumonia, white count is normal, no neutropenia. Labs look stable. She is negative for COVID influenza and RSV. No evidence of definitive UTI. Blood cultures were drawn and are pending but given that she is not neutropenic, do feel observation is appropriate. She did ask about testing for strep. She has erythematous based lesions with little white areas, look almost more fungal to me. She has had problems with fluconazole due to side effects. I think she is safe to await to talk to her regular oncology team in the morning. I would favor adding in an antifungal oral agent but admittedly, she is complex patient in with her chemotherapy, feel that further directive should come from her care team. She is stable to discharge in I do not think is going to have issue overnight if these have a component of thrush to them. Certainly if she worsens, she will seek re-evaluation. She is wondering if she can get some Zofran IV prior to discharge due to nausea. Patient is requesting to go home at this time, do think that is reasonable as long as she contacts her oncology team tomorrow or returns of worsening. Vital Signs Vital signs: Initial Vital Signs Temperature 98.5 F 10/21/22 18:54 Temperature Source Temporal Artery Scan 10/21/22 18:54 Pulse Rate 123 H 10/21/22 18:54 Pulse Rhythm Regular 10/21/22 18:54 Pulse Strength 3+ Normal 10/21/22 18:54 Respiratory Rate 21 10/21/22 18:54 Blood Pressure 136/79 10/21/22 18:54 Blood Pressure Mean 98 10/21/22 18:54 Blood Pressure Position Sitting 10/21/22 18:54 Pulse Oximetry 98 10/21/22 18:54 Oxygen Delivery Method Room Air 10/21/22 18:54 Vital Signs Temperature 98.5 F 10/21/22 18:54 Pulse Rate 123 H 10/21/22 18:54 Respiratory Rate 21 10/21/22 18:54 Blood Pressure 136/79 10/21/22 18:54 Pulse Oximetry 98 10/21/22 18:54 Oxygen Delivery Method Room Air 10/21/22 18:54 Temperature 98.5 F 10/21/22 18:54 Pulse Rate 123 H 10/21/22 18:54 Respiratory Rate 21 10/21/22 18:54 Blood Pressure 136/79 10/21/22 18:54 Pulse Oximetry 98 10/21/22 18:54 Oxygen Delivery Method Room Air 10/21/22 18:54 MDM - Fever Lab Data Attestation: I reviewed the patient's lab results. Labs: Lab Results 10/21/22 10/21/22 10/21/22 Range/Units 20:26 20:45 20:51 WBC 4.63 (4.50-11.00) K/uL RBC 2.80 L (4.00-5.20) m/uL Hgb 8.4 L (12.0-16.0) gm/dL Hct 26.3 L (33.0-51.0) % MCV 94 (80-100) fL MCH 30 (26-34) pg MCHC 32 (32-36) gm/dL RDW Coeff of Mandy 16.3 H (11.5-15.5) % Plt Count 51 L (140-440) K/uL Neut % (Auto) 62.5 (42.0-72.0) % Lymph % (Auto) 19.4 L (20-44) % [place] % (Auto) 15.8 H (0.0-11.0) % Eos % (Auto) 0.2 (0.0-7.0) % Baso % (Auto) 0.2 (0.0-3.0) % Neut # (Auto) 2.89 (1.7-7.0) K/uL Lymph # (Auto) 0.90 (0.90-2.90) K/uL [place] # (Auto) 0.70 (0.00-0.90) K/UL Eos # (Auto) 0.01 (0.00-0.50) K/uL Baso # (Auto) 0.01 (0.00-0.30) K/uL Abs Immat Gran (auto) 0.09 (0.00-0.30) K/uL Imm/Tot Granulo (auto) 1.9 % Diff Slide Review Acceptable Review (Acceptable) Sodium 135 (135-149) mmol/L Potassium 4.1 (3.6-5.1) mmol/L Chloride 101 (96-114) mmol/L Carbon Dioxide 26 (20-32) mmol/L Anion Gap 8 (7-15) mEq/L BUN 16 (7-30) mg/dL Creatinine 0.5 (0.5-1.5) mg/dL Estimated Creat Clear 124.61 Estimated GFR 113 ml/min Glucose 111 (60-115) mg/dL Lactate 1.4 (0.5-1.9) mmol/L Calcium 8.8 (8.4-10.6) mg/dL Total Bilirubin 0.7 (0.1-1.5) mg/dL AST 32 (12-35) U/L ALT 27 (4-35) U/L Alkaline Phosphatase 86 (40-150) U/L Total Protein 6.1 (6.0-8.3) g/dL Albumin 3.5 (3.3-5.0) g/dL Procalcitonin 0.17 (<0.50) ng/mL Urine Color Yellow (Yellow) Urine Appearance Clear (Clear) Urine pH 8.0 (5.0-8.5) Ur Specific [place] 1.015 (1.000-1.030) Urine Protein Negative (Negative) Urine Glucose (UA) Negative (Negative) Urine Ketones Negative (Negative) Urine Blood Trace-lysed A (Negative) Urine Nitrite Negative (Negative) Urine Bilirubin Negative (Negative) Urine Urobilinogen 1.0 (0.2-1.0) Ur Leukocyte Esterase 1+ A (Negative) Urine RBC 0-2 (0-2) Urine WBC 0-2 (0-5) Ur Squamous Epith Cells Few (None-Few) Urine Bacteria Few A (None) SARS-CoV-2 (PCR) Negative SARS-CoV-2 (Negative) Influenza Type A (PCR) Negative PCR FLU A (Negative) Influenza Type B (PCR) Negative PCR FLU B (Negative) RSV (PCR) Negative PCR RSV (Negative) Imaging Data Chest x-ray: Attestation: I have reviewed the pertinent imaging results. My impression: See metastatic lesions, will have radiologist's over-read, no definitive pneumonia that I see. Radiologist's impression: Patient: RENE MARS Facility:?[facility] Patient ID:?[id number] Site Patient ID:?[id number]. Site :?[id number] Study:?XRay Chest AP PORTABLE-10/21/2022 9:43:20 PM Ordering Physician:Jackelin Ramirez Final Report: INDICATION: Fever while on chemotherapy. COMPARISON: 11 September 2022. TECHNIQUE: One view. IMPRESSION: Decreased size and number of multiple lesions in both lungs. No definitively new lesion. No pneumonia. Perihilar atelectasis or scar left mid lung unchanged. Right [id number] catheter tip cavoatrial junction. Dictated by Denys Snider MD @ 10/21/2022 10:27:49 PM (Electronic Signature) Discharge Plan Discharge Clinical Impression: Fever Patient Disposition: Home, Self-Care Condition: Stable Instructions: Fever in Adults (ED) Additional Instructions: The oral lesions look like a mucus side this with possible fungal component. I would advise you to talk to her chemotherapy team and see if they agree with adding in an antifungal agent. I see that fluconazole has cause you issues in the past, do recommend that you talk to them. Obviously if you have worsening symptoms, further concerns overnight, please seek re-evaluation. Can continue with the oral mouth wash regimens that they had advised. Please contact your routine oncology team tomorrow. Activity Level: Activity as Tolerated Prescriptions: No Action ondansetron HCl 8 mg tablet 8 mg PO Q8H PRN (Reason: nausea) Eliquis 5 mg tablet 5 mg PO BID cholecalciferol (vitamin D3) [Vitamin D3] 50 mcg (2,000 unit) tablet 50 mcg PO DAILY lidocaine-prilocaine 2.5-2.5 % cream 1 applic topical DAILY PRN Rx Instructions: FOR PORT ACCESS celecoxib 100 mg capsule 100 mg PO BID Qty: 60 0RF sennosides [Natural Senna Laxative] 8.6 mg tablet 17.2 mg PO BID lorazepam 1 mg tablet 1 mg PO DAILY PRN (Reason: anxiety) prochlorperazine maleate 10 mg tablet 10 mg PO Q8H PRN duloxetine 30 mg Capsule,Delayed Release(Dr/Ec) 30 mg PO HS Qty: 60 0RF Rx Instructions: may increase to 60mg at night in one week; after celexa is done tizanidine 4 mg Tablet 2 mg PO HS Qty: 30 0RF hydromorphone 2 mg Tablet 2 - 4 mg PO Q6H PRNQty: 120 0RF lidocaine [Lidoderm] 5 % Adhesive Patch,Medicated 1 patch transdermal DAILY Qty: 10 0RF omeprazole 20 mg Capsule,Delayed Release(Dr/Ec) 40 mg PO DAILY@0700 Qty: 30 0RF citalopram 40 mg tablet 20 mg PO DAILY Qty: 8 0RF Rx Instructions: take 1/2 tab for 7 days then stop acetaminophen 500 mg capsule 1,000 mg PO TID Qty: 90 0RF fentanyl 50 mcg/hr Patch 72 Hour 1 patch transdermal Q72H Qty: 10 0RF Follow Up/Referrals: Epi Stinson MD [Primary Care Provider] - Stand Alone Forms: [employer] Info Instructions
[2022-10-21 20:44] VITALS: O2SAT 100
--- NOTE | 2022-10-21 20:44 | CRLHL7_ITS ---
For Patients: As a result of the Cures Act, medical imaging exams and procedure reports are released immediately into your electronic medical record. You may view this report before your referring provider. If you have questions, please contact your health care provider. INDICATION: Fever while on chemotherapy. COMPARISON: 11 September 2022. TECHNIQUE: One view. IMPRESSION: Decreased size and number of multiple lesions in both lungs. No definitively new lesion. No pneumonia. Perihilar atelectasis or scar left mid lung unchanged. Right [id number]-[id number]-Znbm catheter tip cavoatrial junction. Dictated by Denys Snider MD @ 10/21/2022 10:27:49 PM (Electronically Signed)
[2022-10-21 20:52] LABS: Lactate* 1.4 mmol/L (0.5-1.9)
[2022-10-21 20:55] LABS: Albumin* 3.5 g/dL (3.3-5.0); Chloride* 101 mmol/L (96-114); Potassium* 4.1 mmol/L (3.6-5.1); Sodium* 135 mmol/L (135-149)
[2022-10-21 20:58] LABS: Alanine Aminotransferase* 27 U/L (4-35); Alkaline Phosphatase* 86 U/L (40-150); Anion Gap 8 mEq/L (7-15); Aspartate Amino Transferase* 32 U/L (12-35); Bilirubin Total* 0.7 mg/dL (0.1-1.5); Blood Urea Nitrogen* 16 mg/dL (7-30); Calcium* 8.8 mg/dL (8.4-10.6); Carbon Dioxide* 26 mmol/L (20-32); Creatinine* 0.5 mg/dL (0.5-1.5); Est. Creatinine Clearance* 124.61; Estimated Glomerular Filt Rate 113 ml/min; Glucose* 111 mg/dL (60-115); Total Protein* 6.1 g/dL (6.0-8.3)
[2022-10-21 21:01] LABS: Basophils Absolute Auto 0.01 K/uL (0.00-0.30); Basophils Percent Auto 0.2 % (0.0-3.0); Eosinophils Absolute Auto 0.01 K/uL (0.00-0.50); Eosinophils Percent Auto 0.2 % (0.0-7.0); Hematocrit 26.3 % (33.0-51.0); Hemoglobin* 8.4 gm/dL (12.0-16.0); Immature Granulocytes Abs Auto 0.09 K/uL (0.00-0.30); Immature Granulocytes Pct Auto 1.9 %; Lymphocytes Percent Auto 19.4 % (20-44); Mean Corpuscular HGB Conc 32 gm/dL (32-36); Mean Corpuscular Hemoglobin 30 pg (26-34); Mean Corpuscular Volume 94 fL (80-100); Monocytes Percent Auto 15.8 % (0.0-11.0); Neutrophils Absolute Auto 2.89 K/uL (1.7-7.0); Neutrophils Percent Auto 62.5 % (42.0-72.0); Platelet Count* 51 K/uL (140-440); RDW Coefficient of Variation % 16.3 % (11.5-15.5); White Blood Count* 4.63 K/uL (4.50-11.00)
[2022-10-21 21:04] LABS: Slide Review Reflex Yes
[2022-10-21 21:15] LABS: Procalcitonin* 0.17 ng/mL (<0.50)
[2022-10-21 21:23] LABS: Appearance Urine Clear (Clear); Bilirubin Urine Negative (Negative); Blood Urine Trace-lysed (Negative); Color Urine Yellow (Yellow); Glucose Urine Negative (Negative); Ketones Urine Negative (Negative); Leukocyte Esterase Urine 1+ (Negative); Nitrite Urine Negative (Negative); Protein Urine Negative (Negative); Specific Gravity Urine 1.015 (1.000-1.030)
[2022-10-21 21:30] LABS: RBC Urine 0-2 (0-2); WBC Urine 0-2 (0-5)
[2022-10-21 21:31] LABS: Bacteria Urine Few; Squamous Epithelial Cell Urine Few (None-Few)
[2022-10-21 21:44] LABS: PCR FLU A Negative PCR FLU A (Negative); PCR FLU B Negative PCR FLU B (Negative); PCR RSV Negative PCR RSV (Negative)
[2022-10-21 21:47] LABS: SARS PCR* Negative SARS-CoV-2 (Negative)
[2022-10-21 22:12] LABS: Slide Review Acceptable Review (Acceptable)
[2022-10-21] MEDS: ONDANSETRON 2 MG/ML inj 4 MG IVP (23:11)
== END 2022-10-21 23:18 | disposition home or self-care (01) ==
PROVIDERS: Emergency Provider Family Medicine; PCP Family Medicine
DX: R50.9 Fever, unspecified (principal)
CPT/HCPCS: 36415; 71045; 80053; 81001; 83605; 84145; 85025; 87040; 87086; 87631; 94761; 96374; 99284; J2405

== ENCOUNTER 2023-01-11 10:28 | Outpatient (RCR) | payer OTHER, SELFPAY ==
[2023-01-11] MEDS: SODIUM CHLORIDE 0.9 % (FLUSH) 10 ML SYRINGE IVF (10:45)
[2023-01-11 11:23] LABS: Creatinine* 0.6 mg/dL (0.5-1.5); Estimated Glomerular Filt Rate 109 ml/min
== END 2023-07-10 23:59 | disposition home or self-care (01) ==
LOC: CCIC 10:28
PROVIDERS: PCP Family Medicine; Referring Provider Family Medicine; Visit Provider Internal Medicine
DX: C55 Malignant neoplasm of uterus, part unspecified (principal); C78.01 Secondary malignant neoplasm of right lung; C78.02 Secondary malignant neoplasm of left lung; C79.51 Secondary malignant neoplasm of bone
CPT/HCPCS: 36415; 36591; 82565